=== PATIENT | female | born 1960 | race Caucasian/White ===

== ENCOUNTER 2020-04-26 08:13 | Outpatient (REF) | payer OTHER, SELFPAY | END 2020-04-26 08:14 | disposition home or self-care (01) | LOC: HO.HAP 08:13 | PROVIDERS: Visit Provider Internal Medicine | DX: Z46.1 Encounter for fitting and adjustment of hearing aid (principal) | CPT/HCPCS: 92700 ==

== ENCOUNTER 2020-05-08 16:06 | Outpatient (REF) | payer SELFPAY | END 2020-05-08 16:07 | disposition home or self-care (01) | LOC: HO.HAP 16:06 | PROVIDERS: Visit Provider Internal Medicine | DX: Z46.1 Encounter for fitting and adjustment of hearing aid (principal) | CPT/HCPCS: 92700 ==

== ENCOUNTER 2020-06-10 07:47 | Outpatient (REF) | payer OTHER, SELFPAY ==
[2020-06-10 09:37] LABS: COVID-19 Test Negative (Negative)
[2020-06-19 08:20] LABS: COVID-19 Test Negative (Negative); IDNOW Serial# 55D5AD1C
[2020-06-26 08:15] LABS: COVID-19 Test Negative (Negative)
== END 2020-06-10 07:48 | disposition home or self-care (01) ==
LOC: HO.EMPCOV 07:47
PROVIDERS: Visit Provider Internal Medicine
DX: Z20.828 Contact with and (suspected) exposure to other viral communicable diseases (principal)
CPT/HCPCS: 87635; C9803

== ENCOUNTER 2020-06-29 07:46 | Outpatient (REF) | payer OTHER, SELFPAY ==
--- NOTE | 2020-06-29 07:50 | MM_ITS ---
EXAMINATION: MM SCREENING DIGITAL BREAST TOMOSYNTHESIS, BILATERAL CLINICAL INFORMATION: Screening. Asymptomatic. The lifetime risk of breast cancer based on the Tyrer-Cuzick Model is 11.6%. COMPARISON: Mammography: March 06, 2019 and studies dating back to July 01, 2010 TECHNIQUE: Digital breast tomosynthesis is performed in both the craniocaudal and mediolateral oblique views along with computer-aided detection (CAD). Synthesized 2D images are generated from the tomosynthesis. FINDINGS: The breasts are heterogeneously dense, which may obscure small masses (ACR BI-RADS breast composition Category c). There are no significant masses, abnormal calcifications, or other abnormalities. Stable oval density seen about the deep inferior medial aspect of the left breast. MM/MM tomosynthesis screening BI IMPRESSION: There are no significant changes from prior study. ASSESSMENT: BI-RADS 1: Negative RECOMMENDATION: Routine annual mammography screening. This patient's information was entered into a reminder system with a target due date for their next mammogram.
== END 2020-06-29 07:47 | disposition home or self-care (01) ==
LOC: HO.MAMMO 07:46
PROVIDERS: PCP Internal Medicine; Visit Provider Internal Medicine
DX: Z12.31 Encounter for screening mammogram for malignant neoplasm of breast (principal)
CPT/HCPCS: 77063; 77067

== ENCOUNTER 2020-08-23 16:09 | Outpatient (REF) | payer OTHER, SELFPAY ==
[2020-08-23 17:01] LABS: MANUAL DIFF FLAG NO
[2020-08-23 17:12] LABS: Basophils Absolute Auto 0.1 X10*3/uL (0.0-0.2); Basophils Percent Auto 0.8 % (0-2); Eosinophils Absolute Auto 0.3 X10*3/uL (0.0-0.4); Eosinophils Percent Auto 3.8 % (0-4); Hematocrit 40.8 % (37-47); Hemoglobin 13.4 g/dl (12.0-16.0); Imm Gran Abs Auto 0.02 X10*3/uL (0.00-0.03); Imm Gran Pct Auto 0.3 % (0.0-0.4); Lymphocytes Absolute Auto 2.2 X10*3/uL (1.2-4.9); Lymphocytes Percent Auto 29.3 % (20-40); Mean Corpuscular HGB Conc 32.8 g/dl (31.0-35.0); Mean Corpuscular Hemoglobin 27.9 pg (27.0-33.0); Mean Platelet Volume 10.9 fL (9.4-12.3); Monocytes Absolute Auto 0.7 X10*3/uL (0.1-1.2); Monocytes Percent Auto 9.4 % (2-11); Neutrophils Absolute Auto 4.1 X10*3/uL (2.0-8.3); Neutrophils Percent Auto 56.4 % (45-73); Platelet Count 258 X10*3/uL (160-400); Red Cell Distribution Width 12.3 % (11.0-16.0); White Blood Count 7.3 X10*3/uL (4.8-10.8)
[2020-08-23 17:35] LABS: Alanine Aminotransferase 19 U/L (0-31); Albumin Level 4.3 g/dL (3.5-5.0); Alkaline Phosphatase 70 U/L (39-117); Anion Gap 11 (12-20); Aspartate Amino Transferase 18 U/L (5-31); Bilirubin Total 0.8 mg/dL (0.0-1.0); Blood Urea Nitrogen 15 mg/dL (9-16); C Reactive Protein 0.93 mg/dL (< or = 0.50); Calcium 9.3 mg/dL (8.4-10.2); Carbon Dioxide 28 mmol/L (22-29); Chloride 107 mmol/L (96-108); Estimated Glomerular Filt Rate > 60; Glucose Random 90 mg/dL (60-115); Lactate Dehydrogenase 186 U/L (122-220); Sodium 142 mmol/L (135-145); Total Protein 7.5 g/dL (6.5-8.0)
== END 2020-08-23 16:10 | disposition home or self-care (01) ==
LOC: HO.LAB 16:09
PROVIDERS: Visit Provider Internal Medicine
DX: M54.2 Cervicalgia (principal)
CPT/HCPCS: 36415; 80053; 83615; 85025; 86140

== ENCOUNTER 2021-01-23 07:56 | Outpatient (REF) | payer OTHER, SELFPAY ==
--- NOTE | 2021-01-23 08:02 | EMG_ITS ---
Right median and ulnar motor and sensory studies were performed. Right radial sensory study was performed and paraspinal muscles were tested with a needle. IMPRESSION: Moderately severe right median neuropathy across carpal tunnel. MD MIKAL Granger/DARIN / [id number]
== END 2021-01-23 07:57 | disposition home or self-care (01) ==
LOC: HO.NEURO 07:56
PROVIDERS: PCP Internal Medicine; Visit Provider Physician Assistant
DX: R20.0 Anesthesia of skin (principal); R20.2 Paresthesia of skin; G56.01 Carpal tunnel syndrome, right upper limb
CPT/HCPCS: 95886; 95909

== ENCOUNTER → 2021-02-18 13:54 | Outpatient (BNVA) | payer OTHER, SELFPAY | PROVIDERS: Visit Provider Orthopaedic Surgery ==

== ENCOUNTER 2021-02-20 13:26 | Outpatient (REF) | payer OTHER, SELFPAY ==
--- NOTE | 2021-02-24 12:05 | MHC.AU.AHA ---
Adult Audiological Evaluation Date of Visit: 02/20/21 Weapons Electrical Engineering Officer Used: Not Applicable Reason for Appointment: Audiologic re-evaluation due to question of change in hearing ability. Shantell's hearing aids are almost 12 years old and she reports the batteries do not last as long as they used to. Previous Hearing Test Results: 05/25/2018 [facility] Borderline normal to mild loss at 250 Hz, dropping to a moderately-severe high frequency sensorineural hearing loss with the left ear poorer than the right. 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: [employer] Model: S Series 9 [facility] Serial Number: [id number] Battery Size: 10 Repair Warranty: 06/02/21 Dispensed By: [facility] Date of Fittin05/15/2009 Hearing Instrument History- Left Ear: Chief Payroll Clerk: Micki Model: S Series 9 [facility] Serial Number: [id number] Battery Size: 10 Warranty: 06/02/21 Dispensed By: [facility] Date of Fittin05/15/2009 Otoscopy: Right Ear: Unremarkable Left Ear: Unremarkable Tympanometry: Tympanometry not performed today as all previous testing has indicated normal middle ear function bilaterally Hearing Evaluation: Transducer(s) Used: Insert Earphones Bone Conduction Method: Conventional Audiometry Stimuli Used: Pure Tones Right Ear: Description of Hearing: Borderline normal threshold at 250 Hz, sloping to a moderately-severe sensorineural hearing loss at 9509-7505 Hz, rising to moderate loss at 8000 Hz Left Ear: Description of Hearing: Mild sloping to severe sensorineural hearing loss Speech Recognition Threshold (SRT): Method Used: Monitored Live Voice Stimuli Used: Spondee Words Right Ear: 50 dB HL Left Ear: 55 dB HL Word Discrimination: Method: Recorded Lists Word Lists Used: NU-6 Right Ear: 76% at 85 dB HL 84% at 80 dB HL Left Ear: 44% at 85 dB HL 52% at 80 dB HL Most Comfortable Level (MCL): Right Ear: 85 dB HL Left Ear: 85 dB HL Compared to the most recent evaluation: Hearing is stable. Recommendations: Trial with new amplification is recommended. Medical clearance from a physician is required before fitting. Hearing aid maintenance performed today. Shantell is advised to schedule a Hearing Aid Evaluation appointment within the next 6 months when ready to order new hearing aids. Audiological re-evaluation in one year. Will send a reminder card. Diagnosis: Primary Diagnosis: H90.3 Bilateral Sensorineural Hearing Loss Services Performed: Comprehensive Audiological Evaluation (CPT 14911) Signature: Provider: Michael Wong, VANESSA-A
--- NOTE | 2021-02-24 12:11 | MHC.AU.MED ---
Medical Clearance for Hearing Instrumentation Date: 02/20/21 Patient Name: Shantell Jamison Date of : 1960 Primary Care Provider: Referring Provider: Travis Ramirez MD We have seen your patient on 02/20/21 and have determined that they are a candidate for amplification (See accompanying report). Specifically, they would benefit from: Hearing aid use in both ears There is a statute that addresses Medical Evaluation Requirements prior to fitting a patient with a hearing aid. According to [place] statute 265 CMR:6.03(1), (a) General. Except as provided in 265 CMR 6.03(1)(b), a teacher of the deaf/hard of hearing shall not sell a hearing aid unless the prospective user has presented to the teacher of the deaf/hard of hearing a written statement signed by a licensed physician that states that the patient's hearing loss has been medically evaluated and the patient may be considered a candidate for a hearing aid. The medical evaluation must have taken place within the preceding six months. Please note: Due to the [place] Statute referenced above, we cannot accept a signature other than that of a licensed physician. TERADATA SOLUTION ARCHITECT and PA signatures cannot be accepted. I am in agreement with the above recommendation. There is no medical contraindication for hearing instrumentation. Physician Signature Date Physician Name (Printed)
== END 2021-02-20 13:27 | disposition home or self-care (01) ==
LOC: HO.SH 13:26
PROVIDERS: Visit Provider Internal Medicine
DX: H90.3 Sensorineural hearing loss, bilateral (principal)
CPT/HCPCS: 92557

== ENCOUNTER 2021-03-20 11:16 | Day surgery (SDC) | payer OTHER, SELFPAY ==
[2021-03-20 11:36] VITALS: BMI 30.4
[2021-03-20 11:48] VITALS: BP 161/94; PULSE 89; RESP 15; TEMP 36.9; O2SAT 96
--- NOTE | 2021-03-20 12:38 | MHC.SHP ---
Pre-Procedural Eval Section A Date of Service: 03/20/21 The patient is an INPATIENT: No Changes since office visit: No Cold of Flu in the past 2 weeks, No New Medical Problems, No Changes in Medication and No Patient answered all questions The History & Physical has been completed within 30 days and I have reviewed it.: Yes Section B Chief Complaint: carpal tunnel Allergies: Allergies Allergy/AdvReac Type Severity Reaction Status Date / Time No Known Allergies Allergy Verified 03/20/21 11:36 [No Known Allergies*] Plan I have reviewed the history and physical and performed a pertinent physical examination on my patient. No changes have occurred unless specified.
--- NOTE | 2021-03-20 12:41 | W.PM.OPN ---
Operative Note Operative Note Date of Service: 03/20/21 Narrative: Preop diagnosis: 1. Right Carpal tunnel syndrome Postop diagnosis: same Procedure: 1. Right Carpal tunnel release Surgeon: Jaz Gresham MD Anesthesia: local block using 1% lidocaine with epinephrine Findings: Thickened transverse carpal ligament. EBL: Less than 5 mL Specimens: None Complications: None Disposition: Brought to recovery room in stable condition Plan: Follow-up for 7-10 days for wound check and suture removal Indications: The patient is a 60 years old, with right carpal tunnel syndrome that has been unresponsive to nonoperative management. The risks and benefits of operative treatment including but not limited to risk of damage to blood vessels, nerves, tendons, infection, persistent pain, persistent symptoms, or possible need for additional surgery were discussed with the patient and the patient wishes to proceed with surgery. Procedure: Once consent was obtained a local block was performed using a combination of 1% lidocaine with epinephrine. The patient was then brought back to the operating suite and placed on the operative table in supine position. A tourniquet was applied to the proximal aspect of the right upper extremity and the limb was prepped and draped in a standard surgical fashion. Once assured that we had a good block, a 1.5 cm longitudinal incision was made centered over the carpal tunnel. The incision was made through the skin to the subcutaneous tissues using a #15 blade. Dissection was made down to the level of the transverse carpal ligament with care being taken to protect the palmar cutaneous nerve. Once the transverse carpal ligament was clearly visualized, a longitudinal incision was made in the transverse carpal ligament 1st using a #15 blade, then using tenotomy scissors under direct visualization. Care was taken to look for and protect the motor branch of the median nerve when seen in this area. Once satisfied with our carpal tunnel release the wound was copiously irrigated with normal saline and hemostasis was obtained with a brief period of local pressure. The skin edges were reapproximated with some 5.0 nylon suture material and a sterile dressing was applied. The patient appears to have tolerated the procedure well and with no complications. All digits were well vascularized at the conclusion of the case.
[2021-03-20 13:04] VITALS: BP 149/80; PULSE 71; RESP 16; TEMP 36.3; O2SAT 97
== END 2021-03-20 13:10 | disposition home or self-care (01) ==
PROVIDERS: PCP Internal Medicine; Visit Provider Orthopaedic Surgery
PROC: (CPT 64721; principal; 2021-03-20 12:50)
DX: G56.01 Carpal tunnel syndrome, right upper limb (principal); I10 Essential (primary) hypertension; Z79.899 Other long term (current) drug therapy
CPT/HCPCS: 64721

== ENCOUNTER → 2021-04-02 14:59 | Outpatient (BNVA) | payer OTHER, SELFPAY | PROVIDERS: PCP Internal Medicine; Visit Provider Orthopaedic Surgery ==

== ENCOUNTER 2021-04-28 08:43 | Outpatient (REF) | payer SELFPAY ==
--- NOTE | 2021-04-29 07:47 | MHC.AU.HFU ---
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: [employer] Model: S Series 9 [facility] Serial Number: [id number] Repair Warranty: 06/02/22 Loss and Damage Warranty: 06/02/22 Battery Size: 10 Type of Wax Guard: HearClear Dispensed By: [facility] Date of Fittin05/15/2009 Left Ear: Laundry Supervisor: Micki Model: S Series 9 [facility] Serial Number: [id number] Repair Warranty: 06/02/22 Loss and Damage Warranty: 06/02/22 Battery Size: 10 Type of Wax Guard: HearClear Dispensed By: [facility] Date of Fittin05/15/2009 Follow-Up Summary: Patient left message saying she wants hearing aid service and L&D warranty extended. Called [employer] and spoke with Judy who extended warranties to 05/27/2022. Will bill patient $350.00 Recommendations:Hearing instrument follow-up or maintenance as needed. Please contact our clinic with any questions or concerns. Diagnosis Code(s): Primary Diagnosis: H90.3 Bilateral Sensorineural Hearing Loss Services Performed: Extended Warranty (1 or 2 Instruments): 2 Signature: Provider: Michael Wong, [facility]
== END 2021-04-28 08:44 | disposition home or self-care (01) ==
LOC: HO.HAP 08:43
PROVIDERS: Visit Provider Internal Medicine
DX: H90.3 Sensorineural hearing loss, bilateral (principal)
CPT/HCPCS: V5299

== ENCOUNTER 2021-06-07 15:50 | Emergency (ER) | payer OTHER, SELFPAY ==
[2021-06-07 16:04] VITALS: BP 154/92; PULSE 97; RESP 18; TEMP 36.3; O2SAT 97; BMI 30.7
[2021-06-07] MEDS: Lidocaine HCl 1 % 20 ML VIAL INFILTRATI (16:27)
--- NOTE | 2021-06-07 17:16 | ED.WOUNDLAC ---
HPI - Wound/Laceration General Chief Complaint: Wound/Laceration <PRADEEP Birmingham - Last Filed: 06/07/21 17:37> Stated Complaint: left finger laceration <PRADEEP Birmingham - Last Filed: 06/07/21 17:37> Time Seen by Provider: 06/07/21 16:20 <PRADEEP Birmingham - Last Filed: 06/07/21 17:37> Source: patient <PRADEEP Birmingham - Last Filed: 06/07/21 17:37> Mode of arrival: ambulatory <PRADEEP Birmingham - Last Filed: 06/07/21 17:37> Limitations: no limitations <PRADEEP Birmingham - Last Filed: 06/07/21 17:37> History of Present Illness HPI narrative: 61 year old female past medical history significant for carpal tunnel syndrome on right hand, hypertension, presents to the ED with a laceration on the distal aspect of the 4th digit s/p cutting herself with a glass picture frame while cleaning just prior to her arrival. She states the glass was not cracked and it was intact. No concern for a foreign body, and she states she irrigated the area well. She reports pain at the site. Patient is not up to date on a tetanus shot. She is not on blood thinners. Denies fevers, chills, paresthesias, numbness, tingling, uncontrolled bleeding, chest pain, shortness of breath. <PRADEEP Birmingham - Last Filed: 06/07/21 17:37> Onset (ago): hour(s) (1) <PRADEEP Birmingham - Last Filed: 06/07/21 17:37> Location: other (left fourth digit ) <PRADEEP Birmingham - Last Filed: 06/07/21 17:37> Place: home <PRADEEP Birmingham - Last Filed: 06/07/21 17:37> Patient tetanus UTD: No <PRADEEP Birmingham - Last Filed: 06/07/21 17:37> Context: accidental <PRADEEP Birmingham - Last Filed: 06/07/21 17:37> Associated symptoms: none <PRADEEP Birmingham - Last Filed: 06/07/21 17:37> Treatments prior to arrival: bandage and other (cleaned area with water. ) <PRADEEP Birmingham - Last Filed: 06/07/21 17:37> Related Data Home Medications: Home Medications Medication Instructions Recorded Confirmed atenolol 25 mg tablet 25 mg PO DAILY 02/18/21 lisinopril 5 mg tablet 5 mg PO DAILY 02/18/21 estradiol 10 mcg vaginal tablet 1 tab VAGINAL 2XW 03/20/21 03/20/21 (Yuvafem) Previous Rx's Medication Instructions Recorded hydrocodone 5 mg-acetaminophen 325 1 tab PO Q4-6H PRN #5 tab 03/20/21 mg tablet <PRADEEP Birmingham - Last Filed: 06/07/21 17:37> Allergies/Adverse Reactions: Allergies Allergy/AdvReac Type Severity Reaction Status Date / Time No Known Allergies Allergy Verified 06/07/21 16:03 [No Known Allergies*] <PRADEEP Birmingham - Last Filed: 06/07/21 17:37> Review of Systems Review of Systems: Constitutional : No Fever, No Chills, Cardiovascular : No Chest Pain, No SOB Respiratory : No Dyspnea Gastrointestinal : No abdominal pain Musculoskeletal : No Joint Swelling Skin : No rash, positive skin laceration Neuro : No Weakness, No Numbness Psych : No SI/HI <PRADEEP Birmingham - Last Filed: 06/07/21 17:37> [facility] Past Medical History Attestation statement: The following information was validated with the patient. <PRADEEP Birmingham - Last Filed: 06/07/21 17:37> Source: old records reviewed and nursing notes reviewed <PRADEEP Birmingham - Last Filed: 06/07/21 17:37> Medical History: Medical History (Updated 06/07/21 @ 17:28 by PRADEEP Birmingham) High blood pressure <PRADEEP Birmingham - Last Filed: 06/07/21 17:37> Surgical History: Surgical History History of History of stapedectomy Hx of eye surgery <PRADEEP Birmingham - Last Filed: 06/07/21 17:37> Social History Social History: Social History (Updated 02/18/21 @ 14:21 by Orin Chavez) Patient Tobacco Use Status: Never used Tobacco Advance Directives: No Advance Directives Information Provided: No Patient : No Current occupational status: employed 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 Oriented X3.? No acute distress.? Eyes: Pupils equal, round and reactive to light.? CVS: Normal heart rate and rhythm.? Pulses normal.? Respiratory: No respiratory distress.? Breath sounds normal.? Skin: Skin warm and dry.? Normal skin color.? Normal skin turgor.? Extremities: No lower extremity edema.?+ linear laceration to the distal ventral fourth digit around 4 cm in length. Full range of motion to all fingers on left and right hand. Bilateral upper extremity pulses 2+ equal and bilateral. Neuro: Oriented X 3.? No motor deficit.? No sensory deficit. <PRADEEP Birmingham - Last Filed: 06/07/21 17:37> Course Course Course Narrative: Patient seen and examined agree with assessment and plan. <PRADEEP Ray Last Filed: 06/07/21 18:42> Reevaluation(s) Reevaluation #1: Laceration was closed using three 4-0 nylon sutures. non disolvable. No complications. Patient was given her boostrix shot. She is safe for DC home has been told to return if fevers, chills, cp, sob, nausea, vomiting or any signs of infection. She was also told to return in 7-10 days for suture removal. Patient is not diabetic, this was not a complicated repair, and there is no need for antibiotics. <PRADEEP Birmingham Last Filed: 06/07/21 17:37> Time: 17:26 <PRADEEP Birmingham Last Filed: 06/07/21 17:37> MDM - Wound/Laceration MDM Narrative Medical decision making narrative: 1620 61 yo female pmhx HTN, carpel tunnel presents to the ED with a 4 cm linear lac to the ventral aspect of the fourth left digit. Patient cut herself on glass. Bleeding well controlled. Not on thinners. Reports pain at site. Denies issues with sensory and motor. No fevers, chills, CP, SOB Upon physical examinaiton patient apepars comfortable. Lungs clear. RRR. A linear laceration to the distal ventral fourth digit around 4 cm in length. Full range of motion to all fingers on left and right hand. Bilateral upper extremity pulses 2+ equal and bilateral. Sensory and motor intact. Plan: irrigate area with saline, clean with iodine, use lidocaine for anesthesia and suture using 4-0 sutures. <PRADEEP Birmingham Last Filed: 06/07/21 17:37> Procedures Laceration Laceration 1: Site: other (left fourth digit, venrtal distal aspect) <PRADEEP Birmingham Last Filed: 06/07/21 17:37> Side (If applicable): left <PRADEEP Birmingham Last Filed: 06/07/21 17:37> Size (cm): 4 <PRADEEP Birmingham Last Filed: 06/07/21 17:37> Description: linear <PRADEEP Birmingham Last Filed: 06/07/21 17:37> Depth: simple, single layer <PRADEEP Birmingham - Last Filed: 06/07/21 17:37> Local Anesthetic: lidocaine 1% <PRADEEP Birmingham - Last Filed: 06/07/21 17:37> Amount of anesthesia used (mL): 5 <PRADEEP Birmingham - Last Filed: 06/07/21 17:37> Pre-repair: wound explored, irrigated extensively and deep structures intact <PRADEEP Birmingham - Last Filed: 06/07/21 17:37> Skin layer closed with: nylon <PRADEEP Birmingham - Last Filed: 06/07/21 17:37> Size (cm): 4-0 <PRADEEP Birmingham - Last Filed: 06/07/21 17:37> Number of sutures: 3 <PRADEEP Birmingham - Last Filed: 06/07/21 17:37> Technique: simple, interrupted <PRADEEP Birmingham - Last Filed: 06/07/21 17:37> Critical Care Time Critical Care Time Critical Care Time: No <PRADEEP Birmingham - Last Filed: 06/07/21 17:37> Discharge Plan Discharge Clinical Impression: Laceration <PRADEEP Birmingham - Last Filed: 06/07/21 17:37> Patient Disposition: Home, Self-Care <PRADEEP Birmingham - Last Filed: 06/07/21 17:37> Instructions: Care For Your Stitches (ED), Stitches Removal (ED) <PRADEEP Birmingham - Last Filed: 06/07/21 17:37> Additional Instructions: Follow-up with your primary care provider this week as needed Return for suture removal in 7-10 days Return to the emergency department with new or worsening symptoms. Or if you experience fevers, chills, shortness of breaht, worsening pain or any signs of infeciton. In case of emergency call 911 <PRADEEP Birmingham - Last Filed: 06/07/21 17:37> Prescriptions: No Action estradiol [Yuvafem] 10 mcg tablet 1 tab vaginal 2XW RF: 0 hydrocodone-acetaminophen 5-325 mg tablet 1 tab PO Q4-6H PRN (Reason: pain) Qty: 5 RF: 0 <PRADEEP Birmingham - Last Filed: 06/07/21 17:37> Referrals: Travis Ramirez MD [Primary Care Provider] - 1 week <PRADEEP Birmingham - Last Filed: 06/07/21 17:37> Stand Alone Forms: Work/School Release <PRADEEP Birmingham - Last Filed: 06/07/21 17:37> Interventions: ED Discharge Assessment Last Done: 06/07/21 17:50 <PRADEEP Birmingham - Last Filed: 06/07/21 17:37> Discharge Date/Time: 06/07/21 17:51 <PRADEEP Birmingham - Last Filed: 06/07/21 17:37>
[2021-06-07] MEDS: Diphth,Pertus(ACell),Tet Adult 0.5 ML SYRINGE IM (17:22)
== END 2021-06-07 17:51 | disposition home or self-care (01) ==
PROVIDERS: Emergency Provider Internal Medicine; PCP Internal Medicine
DX: S61.211A Laceration without foreign body of left index finger without damage to nail, initial encounter (principal); S60.512A Abrasion of left hand, initial encounter; M79.642 Pain in left hand; W25.XXXA Contact with sharp glass, initial encounter; Y93.9 Activity, unspecified; Y92.009 Unspecified place in unspecified non-institutional (private) residence as the place of occurrence of the external cause; Y99.9 Unspecified external cause status; Z79.899 Other long term (current) drug therapy
CPT/HCPCS: 12002; 90471; 90715; 99283; 99284

== ENCOUNTER 2021-07-02 07:20 | Outpatient (REF) | payer OTHER, SELFPAY ==
--- NOTE | ~2021-07-02 | MM_ITS ---
EXAMINATION: MM SCREENING DIGITAL BREAST TOMOSYNTHESIS, BILATERAL CLINICAL INFORMATION: Screening. Asymptomatic. The lifetime risk of breast cancer based on the Tyrer-Cuzick Model is 9.2%. COMPARISON: Mammography: June 29, 2020 and studies dating back to October 02, 2013 TECHNIQUE: Digital breast tomosynthesis is performed in both the craniocaudal and mediolateral oblique views along with computer-aided detection (CAD). Synthesized 2D images are generated from the tomosynthesis. FINDINGS: The breasts are heterogeneously dense, which may obscure small masses (ACR BI-RADS breast composition Category c). There are no significant masses, abnormal calcifications, or other abnormalities. Stable regions of architectural distortion present bilaterally. MM/MM tomosynthesis screening BI IMPRESSION: There are no significant changes from prior study. ASSESSMENT: BI-RADS 1: Negative RECOMMENDATION: Routine annual mammography screening. This patient's information was entered into a reminder system with a target due date for their next mammogram.
== END 2021-07-02 07:21 | disposition home or self-care (01) ==
LOC: HO.MAMMO 07:20
PROVIDERS: Visit Provider Internal Medicine
DX: Z12.31 Encounter for screening mammogram for malignant neoplasm of breast (principal)
CPT/HCPCS: 77063; 77067

== ENCOUNTER → 2021-08-15 07:50 | Outpatient (BNVA) | payer OTHER, SELFPAY | PROVIDERS: PCP Internal Medicine | DX: Z13.89 Encounter for screening for other disorder (principal) | CPT/HCPCS: 36415; 84450; 84460; 85025; 86706; 86803; 87389; 99202 ==

== ENCOUNTER → 2021-08-19 07:43 | Outpatient (BNVA) | payer OTHER, SELFPAY | PROVIDERS: PCP Internal Medicine; Visit Provider Internal Medicine | DX: Z13.89 Encounter for screening for other disorder (principal) | CPT/HCPCS: 99213 ==

== ENCOUNTER → 2021-08-29 07:50 | Outpatient (BNVA) | payer OTHER, SELFPAY | PROVIDERS: PCP Internal Medicine; Visit Provider Internal Medicine | DX: Z13.89 Encounter for screening for other disorder (principal) | CPT/HCPCS: 36415; 82150; 82565; 84450; 84460; 85025; 99213 ==

== ENCOUNTER → 2021-09-12 07:42 | Outpatient (BNVA) | payer OTHER, SELFPAY | PROVIDERS: PCP Internal Medicine; Visit Provider Internal Medicine | DX: Z13.89 Encounter for screening for other disorder (principal) | CPT/HCPCS: 36415; 82150; 82565; 84450; 84460; 85025; 99213 ==

== ENCOUNTER → 2021-09-25 08:39 | Outpatient (BNVA) | payer OTHER, SELFPAY | PROVIDERS: PCP Internal Medicine | DX: Z13.89 Encounter for screening for other disorder (principal) | CPT/HCPCS: 36415; 84450; 84460; 87389; 99211 ==

== ENCOUNTER → 2021-11-20 07:26 | Outpatient (BNVA) | payer OTHER, SELFPAY | PROVIDERS: PCP Internal Medicine | DX: Z13.89 Encounter for screening for other disorder (principal) | CPT/HCPCS: 36415; 84450; 84460; 86803; 87389; 99211 ==

== ENCOUNTER → 2022-02-11 14:29 | Outpatient (BNVA) | payer OTHER, SELFPAY | PROVIDERS: PCP Internal Medicine; Visit Provider Orthopaedic Surgery | DX: G56.02 Carpal tunnel syndrome, left upper limb (principal) | CPT/HCPCS: 99212 ==

== ENCOUNTER → 2022-02-26 07:45 | Outpatient (BNVA) | payer OTHER, SELFPAY | PROVIDERS: PCP Internal Medicine | DX: Z13.89 Encounter for screening for other disorder (principal) | CPT/HCPCS: 36415; 84450; 84460; 86803; 87389; 99211 ==

== ENCOUNTER 2022-04-16 10:33 | Day surgery (SDC) | payer OTHER, SELFPAY ==
[2022-04-09 13:25] VITALS: BMI 30.7
--- NOTE | 2022-04-16 09:46 | MHC.SHP ---
Pre-Procedural Eval Section A Date of Service: 04/16/22 Section B Chief Complaint: Carpal tunnel syndrome, left upper limb Allergies: Allergies Allergy/AdvReac Type Severity Reaction Status Date / Time No Known Allergies Allergy Verified 02/11/22 14:46 [No Known Allergies*] Plan I have reviewed the history and physical and performed a pertinent physical examination on my patient. No changes have occurred unless specified.
--- NOTE | 2022-04-16 09:48 | W.PM.OPN ---
Operative Note Operative Note Date of Service: 04/16/22 Narrative: Preop diagnosis: 1. Left Carpal tunnel syndrome Postop diagnosis: same Procedure: 1. left Carpal tunnel release Surgeon: Jaz Gresham MD Anesthesia: local block using 1% lidocaine with epinephrine Findings: Thickened transverse carpal ligament. EBL: Less than 5 mL Specimens: None Complications: None Disposition: Brought to recovery room in stable condition Plan: Follow-up for 10-14 days for wound check and suture removal Indications: The patient is 62 years old, with left carpal tunnel syndrome that has been unresponsive to nonoperative management. The risks and benefits of operative treatment including but not limited to risk of damage to blood vessels, nerves, tendons, infection, persistent pain, persistent symptoms, or possible need for additional surgery were discussed with the patient and the patient wishes to proceed with surgery. Procedure: Once consent was obtained a local block was performed using a combination of 1% lidocaine with epinephrine. The patient was then brought back to the operating suite and placed on the operative table in supine position. A tourniquet was applied to the proximal aspect of the left upper extremity and the limb was prepped and draped in a standard surgical fashion. Once assured that we had a good block, a 2.0 cm longitudinal incision was made centered over the carpal tunnel. The incision was made through the skin to the subcutaneous tissues using a #15 blade. Dissection was made down to the level of the transverse carpal ligament with care being taken to protect the palmar cutaneous nerve. Once the transverse carpal ligament was clearly visualized, a longitudinal incision was made in the transverse carpal ligament 1st using a #15 blade, then using tenotomy scissors under direct visualization. Care was taken to look for and protect the motor branch of the median nerve when seen in this area. Once satisfied with our carpal tunnel release the wound was copiously irrigated with normal saline and hemostasis was obtained with a brief period of local pressure. The skin edges were reapproximated with some 5.0 nylon suture material and a sterile dressing was applied. The patient appears to have tolerated the procedure well and with no complications. All digits were well vascularized at the conclusion of the case.
[2022-04-16 13:38] VITALS: BP 158/77; PULSE 66; RESP 18; TEMP 36.6
== END 2022-04-16 13:40 | disposition home or self-care (01) ==
LOC: HO.SSS 10:34
PROVIDERS: PCP Internal Medicine; Visit Provider Orthopaedic Surgery
PROC: (CPT 64721; principal; 2022-04-16 11:30)
DX: G56.02 Carpal tunnel syndrome, left upper limb (principal); R20.0 Anesthesia of skin; R20.2 Paresthesia of skin; I10 Essential (primary) hypertension; Z79.899 Other long term (current) drug therapy; Z98.890 Other specified postprocedural states
CPT/HCPCS: 64721; J0171

== ENCOUNTER 2022-05-21 08:31 | Outpatient (REF) | payer SELFPAY | END 2022-05-21 08:32 | disposition home or self-care (01) | LOC: HO.HAP 08:31 | PROVIDERS: Visit Provider Internal Medicine | DX: Z46.1 Encounter for fitting and adjustment of hearing aid (principal); H90.3 Sensorineural hearing loss, bilateral | CPT/HCPCS: 92700; V5299 ==

== ENCOUNTER 2022-06-05 14:57 | Outpatient (REF) | payer SELFPAY | END 2022-06-05 14:58 | disposition home or self-care (01) | LOC: HO.HAP 14:57 | PROVIDERS: Visit Provider Internal Medicine | DX: Z13.89 Encounter for screening for other disorder (principal) ==

== ENCOUNTER 2022-07-06 07:25 | Outpatient (REF) | payer OTHER, SELFPAY ==
--- NOTE | ~2022-07-06 | MM_ITS ---
EXAMINATION: MM SCREENING DIGITAL BREAST TOMOSYNTHESIS, BILATERAL CLINICAL INFORMATION: Screening. Asymptomatic. The lifetime risk of breast cancer based on the Tyrer-Cuzick Model is 8%. COMPARISON: Mammography: 07/02/2021, 06/29/2020, 03/06/2019, 02/10/2018 TECHNIQUE: Digital breast tomosynthesis is performed in both the craniocaudal and mediolateral oblique views along with computer-aided detection (CAD). Synthesized 2D images are generated from the tomosynthesis. FINDINGS: There are scattered areas of fibroglandular density (ACR BI-RADS breast composition Category b). Parenchymal pattern is similar to prior exams and there is no developing density or interval architectural abnormality or abnormal calcifications. Breast tissue composition borders on heterogeneously dense. Biopsy clip marker again seen on right central mid breast. The axilla and skin contours are unremarkable. There are no significant changes. MM/MM tomosynthesis screening BI IMPRESSION: No mammographic evidence of malignancy. ASSESSMENT: BI-RADS 1: Negative RECOMMENDATION: Routine annual mammography screening. This patient's information was entered into a reminder system with a target due date for their next mammogram.
== END 2022-07-06 07:26 | disposition home or self-care (01) ==
LOC: HO.MAMMO 07:25
PROVIDERS: PCP Internal Medicine; Visit Provider Internal Medicine
DX: Z12.31 Encounter for screening mammogram for malignant neoplasm of breast (principal)
CPT/HCPCS: 77063; 77067

== ENCOUNTER 2022-07-17 07:53 | Outpatient (REF) | payer OTHER, SELFPAY | END 2022-07-17 07:54 | disposition home or self-care (01) | LOC: HO.SH 07:53 | PROVIDERS: Visit Provider Internal Medicine | DX: Z01.118 Encounter for examination of ears and hearing with other abnormal findings (principal); H90.3 Sensorineural hearing loss, bilateral | CPT/HCPCS: 92557 ==

== ENCOUNTER 2022-11-20 09:45 | Day surgery (SDC) | payer OTHER, SELFPAY ==
--- NOTE | 2022-11-19 09:10 | HO.ANESPROP2 ---
Documented by User: Adamaris Blancas NP 11/19/22 09:10 HPI - Anesthesia Eval Consult details Narrative: 62yo F for Colonoscopy PMFSH Active Problems Active Problems: All Active Problems (Updated 02/11/22 @ 15:32 by Jaz Gresham MD) Carpal tunnel syndrome on right (Acute) Carpal tunnel syndrome of left wrist (Acute) Past Medical History Medical History High blood pressure Surgical History Surgical History (Updated 11/19/22 @ 06:44 by Sharmila Erazo RN) History of breast biopsy History of History of carpal tunnel surgery of left wrist (~04/16/22) History of carpal tunnel surgery of right wrist (~03/20/22) History of stapedectomy Hx of eye surgery Social History Social History Patient Tobacco Use Status: Never used Tobacco Use of substances other than those prescribed or required for medical reasons: No Are you DNR?: No Advance Directives: No Advance Directives Information Provided: Yes Recently lost weight without trying: No Nutrition Risks: No Nutritional Risk Current occupational status: employed 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 Meds Allergies Allergy/AdvReac Type Severity Reaction Status Date / Time No Known Allergies Allergy Verified 04/28/22 09:03 [No Known Allergies*] Home Medications Medication Instructions Recorded Confirmed Last Taken Type atenolol 25 mg tablet 25 mg PO DAILY 02/18/21 11/20/22 Unknown History lisinopril 5 mg tablet 5 mg PO DAILY 02/18/21 11/20/22 Unknown History estradiol 10 mcg vaginal tablet 1 tab vaginal 2XW 03/20/21 11/20/22 Unknown History (Yuvafem) Exam Exam Date and Time: November 19, 2022909 Assessment and Plan Assessment Anesthesia Assessment: Chart Reviewed Documented by User: Rodri Lynch MD 11/20/22 12:02 [facility] Past Medical History Medical History High blood pressure Family History Family history of problems with anesthesia: No Surgical History Surgical History (Updated 11/19/22 @ 06:44 by Sharmila Erazo RN) History of breast biopsy History of History of carpal tunnel surgery of left wrist (~04/16/22) History of carpal tunnel surgery of right wrist (~03/20/22) History of stapedectomy Hx of eye surgery History of Problems with Anesthesia: No Social History Social History Patient Tobacco Use Status: Never used Tobacco Use of substances other than those prescribed or required for medical reasons: No Are you DNR?: No Advance Directives: No Advance Directives Information Provided: Yes Recently lost weight without trying: No Nutrition Risks: No Nutritional Risk Current occupational status: employed 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 Meds Allergies Allergy/AdvReac Type Severity Reaction Status Date / Time No Known Allergies Allergy Verified 04/28/22 09:03 [No Known Allergies*] Home Medications Medication Instructions Recorded Confirmed Last Taken Type atenolol 25 mg tablet 25 mg PO DAILY 02/18/21 11/20/22 Unknown History lisinopril 5 mg tablet 5 mg PO DAILY 02/18/21 11/20/22 Unknown History estradiol 10 mcg vaginal tablet 1 tab vaginal 2XW 03/20/21 11/20/22 Unknown History (Yuvafem) Exam Airway Mallampati Class: I TM Dist: >3cm Neck ROM: Full Heart: ok Lungs: ok Assessment and Plan Assessment Anesthesia Assessment: Anesthesia Plan Discussed Final Anesthetic Review Family History of Problems with Anesthesia: No History of Problems with Anesthesia: No NPO: Yes ASA Class: II Final Preanesthetic Review: No Changes in Pt Med Stat, Meds/Allgs Chart Reviewed, Consent Obtained/Reviewed and Anes Risks/Benef Reviewed Patient Risk: Low Procedure Risk: Low Anesthetic Plan Anesthetic Plan: MAC: and Agree w/ Assess. and Plan Disposition: Standard PACU
[2022-11-20 10:26] VITALS: BMI 31.4
[2022-11-20 10:36] VITALS: BP 152/80; PULSE 81; RESP 16; TEMP 36.9; O2SAT 98
[2022-11-20] MEDS: Lactated Ringers 1,000 ML 100 ML IVCONT (10:52)
--- NOTE | 2022-11-20 11:45 | MHC.SHP ---
Pre-Procedural Eval Section A Date of Service: 11/20/22 Section B Chief Complaint: hx ofcolonic polyps,screening Details of Present Illness: see H&P no changes Relevant Family History (Specify if Yes): No Relevant Social History: None Present Medications: see Short Stay Collaborative assessment Medical History: No relevant PMH History of Previous Operations: No relevant previous surgery Allergies: Allergies Allergy/AdvReac Type Severity Reaction Status Date / Time No Known Allergies Allergy Verified 04/28/22 09:03 [No Known Allergies*] Review of Systems Sugical H&P ROS: Negative: Constitution, Cardiovascular, Respiratory, Neurological, Psychiatric, Hem-Onc, Allergic/Immunologic, Gastrointestinal, Genitourinary, Musculoskeletal, Integumentary, Endocrine and Eyes/Ears/Nose/Throat Exam Surgical H&P Exam: Normal: HEENT, Normal: Heart, Normal: Lungs, Normal: Extremities, Normal: Abdomen, Normal: Skin and Normal: Neurological Plan Diagnosis/Plan: Unchanged I have reviewed the history and physical and performed a pertinent physical examination on my patient. No changes have occurred unless specified. Time Spent With Patient Time: Total time managing care of this patient today ____ minutes.
[2022-11-20 12:33] VITALS: BP 99/54; PULSE 70; RESP 19; TEMP 36.1; O2SAT 97
--- NOTE | 2022-11-20 12:33 | P.BOP_ITS ---
Brief Operative Note Date of Service: 11/20/22 Pre-op diagnosis: screening Post-op diagnosis: same Procedure: colonoscopy Surgeon: Nicola Anderson Anesthesia: MAC Was an Environmental Assistant used for this Procedure?: No Estimated blood loss (mL): 0 Pathology: none sent Condition: stable Disposition: PACU
[2022-11-20 12:49] VITALS: BP 100/59; PULSE 75; RESP 16; TEMP 37.1
--- NOTE | 2022-11-20 13:28 | OP_ITS ---
DATE OF SERVICE: 11/20/2022 SURGEON: Nicola Anderson MD INDICATIONS: Colon cancer screening. PREOPERATIVE DIAGNOSIS: POSTOPERATIVE DIAGNOSIS: PROCEDURE PERFORMED: Colonoscopy to the terminal ileum. ESTIMATED BLOOD LOSS: COMPLICATIONS: ANESTHESIA: Monitored anesthesia care. ASSISTANTS: SPECIMENS: DESCRIPTION OF PROCEDURE: A history and physical performed. The risks and benefits of the procedure were explained to the patient. Informed consent was obtained. The patient was placed in left lateral decubitus position. A digital rectal exam was performed and was found to be normal. The Olympus pediatric video colonoscope was introduced into the rectum and advanced to the cecum without difficulty. The cecum was identified by transillumination, palpation, and identification of ileocecal valve. Examination was performed. The scope was removed. She tolerated the procedure well and was taken to recovery in stable condition. FINDINGS: The terminal ileum was examined and appeared normal. The visualized colonic mucosa was normal. The quality of the prep was good. The sigmoid was quite tortuous, which made the exam challenging, but the scope was eventually able to be passed through the sigmoid without any difficulty. No polyps were identified. The quality of prep was good. There was mild sigmoid diverticulosis. Retroflexed examination showed small internal hemorrhoids. IMPRESSION: Normal colonoscopy. RECOMMENDATION: 1. Follow up as needed. 2. Repeat colonoscopy is recommended in 5 years.. MD NORY Lucero/MODL / [id number] MTDD
== END 2022-11-20 13:30 | disposition home or self-care (01) ==
PROVIDERS: PCP Internal Medicine; Visit Provider Internal Medicine Gastroenterology
PROC: 0DJD8ZZ Inspection of Lower Intestinal Tract, Via Natural or Artificial Opening Endoscopic (ICD-10-PCS; CPT 45378; principal; 2022-11-20 10:50)
DX: Z12.11 Encounter for screening for malignant neoplasm of colon (principal); Z83.71 Family history of colonic polyps; K57.30 Diverticulosis of large intestine without perforation or abscess without bleeding; K64.8 Other hemorrhoids; Z79.899 Other long term (current) drug therapy; I10 Essential (primary) hypertension; Z87.891 Personal history of nicotine dependence; K92.89 Other specified diseases of the digestive system
CPT/HCPCS: 45378

== ENCOUNTER 2023-02-19 11:10 | Outpatient (REF) | payer SELFPAY | END 2023-02-19 11:11 | disposition home or self-care (01) | LOC: HO.HAP 11:10 | PROVIDERS: Visit Provider Internal Medicine | DX: Z46.1 Encounter for fitting and adjustment of hearing aid (principal); H90.3 Sensorineural hearing loss, bilateral | CPT/HCPCS: 92700; V5267 ==

== ENCOUNTER 2023-02-26 15:29 | Outpatient (REF) | payer SELFPAY ==
--- NOTE | 2023-02-26 16:22 | MHC.AU.HA3 ---
Hearing Instrument Follow-Up- Binaural Date of Visit: 02/26/23 Right Ear: Make, Model, Color, Serial Number: Micki Rey Series 9 [facility] SN: [id number] [employer] Warranty: 06/02/2023 [employer] Loss and Damage Warranty: 06/02/2023 Battery Size: 10 Type of Wax Guard: HearClear Dispensed By: [facility] Date of Fittin05/15/2009 Left Ear: Deyvi, Model, Color, Serial Number: Micki Rey Series 9 [facility] SN: [id number] [employer] Warranty: 06/02/2023 [employer] Loss and Damage Warranty: 06/02/2023 Battery Size: 10 Type of Wax Guard: HearClear Dispensed By: [facility] Date of Fittin05/15/2009 Follow-Up Summary: Shantell reported that after her last hearing test, she requested adjustments; however, Sheyla recommended evaluation by electric hoist operator first due to significant change in speech discrimination in her left ear. Shantell reported she saw Dr. Rush who did not recommend any further investigation at this time. Discussed speech discrimination ability and how that affects overall hearing, even with programming adjustments. Increased mid-high frequencies slightly, left more so than right, at Shantell's request. Slight improvement in office. She will trial new settings and call if problems persist. Also briefly discussed new hearing aids. Shantell will request a doctor's order for a new hearing test when she is ready to pursue new hearing aids, as her current test is now greater than 6 months old. 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 Recommendations: Hearing instrument follow-up or maintenance as needed. Please contact our clinic with any questions or concerns. Patient will call if problems persist. Diagnosis Code(s): Primary Diagnosis: H90.3 Bilateral Sensorineural Hearing Loss Signature: Provider: Theodore Isabel, [facility]
== END 2023-02-26 15:30 | disposition home or self-care (01) ==
LOC: HO.HAP 15:29
PROVIDERS: Visit Provider Internal Medicine
DX: Z13.89 Encounter for screening for other disorder (principal)

== ENCOUNTER 2023-05-31 15:42 | Outpatient (REF) | payer OTHER, SELFPAY ==
--- NOTE | ~2023-05-31 | XR_ITS ---
EXAMINATION: XR CHEST CLINICAL INFORMATION: 63-year-old female with cough COMPARISON: 11/16/2017 TECHNIQUE: 2 views of the chest were obtained. FINDINGS: No significant abnormality is noted involving the heart, lungs, mediastinum, bony thorax or soft tissues. XR/XR chest 2V IMPRESSION: Unremarkable examination and no interval change.
== END 2023-05-31 15:43 | disposition home or self-care (01) ==
LOC: HO.XRAY 15:42
PROVIDERS: PCP Internal Medicine; Visit Provider Internal Medicine
DX: R05.9 Cough, unspecified (principal); R06.00 Dyspnea, unspecified
CPT/HCPCS: 71046

== ENCOUNTER 2023-07-21 07:11 | Outpatient (REF) | payer OTHER, SELFPAY ==
--- NOTE | ~2023-07-21 | MM_ITS ---
EXAMINATION: MM SCREENING DIGITAL BREAST TOMOSYNTHESIS, BILATERAL CLINICAL INFORMATION: Screening. Asymptomatic. COMPARISON: Mammography: This study is compared with prior exams dating back to 2017. TECHNIQUE: Digital breast tomosynthesis is performed in both the craniocaudal and mediolateral oblique views along with computer-aided detection (CAD). Synthesized 2D images are generated from the tomosynthesis. FINDINGS: There are scattered areas of fibroglandular density (ACR BI-RADS breast composition Category b). There are no significant masses, abnormal calcifications, or other abnormalities. There is a tissue marker present in the right breast from prior benign percutaneous biopsy. MM/MM tomosynthesis screening BI IMPRESSION: No mammographic evidence of malignancy. ASSESSMENT: BI-RADS BI-RADS 2 - Benign Findings RECOMMENDATION: Routine annual mammography screening. 1 year F/U This examination should not preclude the clinical evaluation of a suspicious palpable abnormality. This patient's information was entered into a reminder system with a target due date for their next mammogram.
--- NOTE | ~2023-07-21 | MM_ITS ---
EXAMINATION: BONE DENSITOMETRY CLINICAL INDICATION: Menopause. COMPARISON: This is the patient's baseline examination. TECHNIQUE: Using a [employer] DXA System (software version: 13.1) manufactured by [employer], dual-energy x-ray absorptiometry was performed of the lumbar spine and left hip. The images are of good technical quality. Summary results are attached. FINDINGS: LEFT FEMUR, NECK: BMD 0.873 g/cm2, Z-score -0.2, T-score -1.2, osteopenia. LEFT FEMUR, TOTAL: BMD 0.850 g/cm2, Z-score -0.6, T-score -1.2, osteopenia. AP SPINE L1-L4: BMD 1.260 g/cm2, Z-score 1.6, T-score 0.7, normal. IDENTIFIED RISK FACTORS: Menopause. HISTORY OF FRACTURE: None listed. MEDICATIONS: None listed. MM/XR DEXA axial skeleton IMPRESSION: 1. DIAGNOSIS: Osteopenia based on the lowest T-score value of -1.2 in the femur neck and total femur applying World Health Organization criteria. 2. 10-YEAR FRACTURE RISK PREDICTION, FRAX: Major osteoporotic fracture (clinical spine, forearm, hip or shoulder) 7.5%. Hip fracture 0.5%. 3. Treatment Recommendations: NOF guidelines recommend consideration for treatment in postmenopausal women and men age 50 and older presenting with the following: -A hip or vertebral (clinical or morphometric) fracture. -T-score less than or equal to -2.5 at the femoral neck or spine after appropriate evaluation to exclude secondary causes. -Low bone mass at the hip or spine and a 10-year fracture probability by FRAX of greater than or equal to 3% for hip fracture or greater than or equal to 20% for major osteoporotic fracture based on the [place] adapted WHO algorithm. 4. Other Recommendations: All treatment decisions require clinical judgment and consideration of individual patient factors, including patient preferences, comorbidities, previous drug use, risk factors not captured in the FRAX model (e.g. frailty, falls, vitamin D deficiency, increased bone turnover, interval significant decline in bone density) and possible under or overestimation of fracture risk by FRAX. Additional medical evaluation for secondary cause of low bone mineral density may be appropriate. FUTURE SCAN RECOMMENDATION: People with diagnosed cases of osteoporosis or at high risk for fracture should have regular bone mineral density tests. For patients eligible for Medicare, routine testing is allowed once every 2 years. The testing frequency can be increased to one year for patients who have rapidly progressing disease, those who are receiving or discontinuing medical therapy to restore bone mass, or have additional risk factors.
[2023-07-21 07:20] LABS: MANUAL DIFF FLAG NO
[2023-07-21 07:28] LABS: Basophils Absolute Auto 0.1 X10*3/uL (0.0-0.2); Eosinophils Absolute Auto 0.3 X10*3/uL (0.0-0.4); Hematocrit 40.4 % (37.0-47.0); Hemoglobin 13.5 g/dl (12.0-16.0); Imm Gran Abs Auto 0.02 X10*3/uL (0.00-0.03); Imm Gran Pct Auto 0.3 % (0.0-0.4); Lymphocytes Absolute Auto 1.9 X10*3/uL (1.2-4.9); Lymphocytes Percent Auto 26.1 % (20-40); Mean Corpuscular HGB Conc 33.4 g/dl (31.0-35.0); Mean Corpuscular Hemoglobin 28.1 pg (27.0-33.0); Mean Corpuscular Volume 84.2 fL (80.0-98.0); Mean Platelet Volume 10.1 fL (9.4-12.3); Monocytes Absolute Auto 0.6 X10*3/uL (0.1-1.2); Monocytes Percent Auto 8.2 % (2-11); Neutrophils Absolute Auto 4.4 x10*3/uL (2.0-8.3); Neutrophils Percent Auto 60.4 % (45-73); Platelet Count 249 X10*3/uL (160-400); Red Cell Distribution Width 12.5 % (11.0-16.0); White Blood Count 7.3 X10*3/uL (4.8-10.8)
[2023-07-21 07:44] LABS: Alanine Aminotransferase 19 U/L (0-31); Albumin Level 4.2 g/dL (3.5-5.0); Alkaline Phosphatase 64 U/L (39-117); Anion Gap 13 (12-20); Aspartate Amino Transferase 19 U/L (5-31); Bilirubin Total 0.6 mg/dL (0.0-1.0); Blood Urea Nitrogen 15 mg/dL (9-16); Calcium 9.5 mg/dL (8.4-10.2); Carbon Dioxide 27 mmol/L (22-29); Chloride 106 mmol/L (96-108); Cholesterol 191 mg/dL (<200); Estimated Glomerular Filt Rate > 60; Glucose Fasting 111 mg/dL (60-99); HDL Cholesterol 58 mg/dL (>40); LDL Cholesterol Calculated 116 mg/dL (<100); Potassium 4.1 mmol/L (3.3-5.1); Sodium 142 mmol/L (135-145); Total Protein 7.9 g/dL (6.5-8.0); Triglycerides 85 mg/dL (<150)
== END 2023-07-21 07:12 | disposition home or self-care (01) ==
LOC: HO.MAMMO 07:11
PROVIDERS: PCP Internal Medicine; Visit Provider Internal Medicine
DX: I10 Essential (primary) hypertension (principal); Z12.31 Encounter for screening mammogram for malignant neoplasm of breast; Z13.820 Encounter for screening for osteoporosis; Z78.0 Asymptomatic menopausal state; Z82.49 Family history of ischemic heart disease and other diseases of the circulatory system
CPT/HCPCS: 36415; 77063; 77067; 77080; 80053; 80061; 85025

== ENCOUNTER → 2023-07-21 08:15 | Outpatient (BNV) | payer OTHER, SELFPAY | PROVIDERS: PCP Internal Medicine; Visit Provider Radiology Diagnostic Radiology | DX: Z12.31 Encounter for screening mammogram for malignant neoplasm of breast (principal) | CPT/HCPCS: 77063; 77067 ==

== ENCOUNTER 2024-03-23 14:21 | Outpatient (REF) | payer SELFPAY | END 2024-03-23 14:22 | disposition home or self-care (01) | LOC: HO.HAP 14:21 | PROVIDERS: Visit Provider Internal Medicine | DX: Z46.1 Encounter for fitting and adjustment of hearing aid (principal); H90.3 Sensorineural hearing loss, bilateral | CPT/HCPCS: V5267 ==

== ENCOUNTER 2024-04-04 15:05 | Outpatient (REF) | payer OTHER, SELFPAY | END 2024-04-04 15:06 | disposition home or self-care (01) | LOC: HO.SH 15:05 | PROVIDERS: Visit Provider Internal Medicine | DX: Z01.118 Encounter for examination of ears and hearing with other abnormal findings (principal); H90.3 Sensorineural hearing loss, bilateral | CPT/HCPCS: 92557; 92567 ==

== ENCOUNTER 2024-07-28 07:23 | Outpatient (REF) | payer OTHER, SELFPAY ==
--- NOTE | ~2024-07-28 | MM_ITS ---
EXAMINATION: MM SCREENING DIGITAL BREAST TOMOSYNTHESIS, BILATERAL CLINICAL INFORMATION: Screening. Asymptomatic. COMPARISON: Mammography: Comparison is made with available priors TECHNIQUE: Digital breast mammography with tomosynthesis is performed in both the craniocaudal and mediolateral oblique views along with computer-aided detection (CAD). FINDINGS: The breasts are heterogeneously dense, which may obscure small masses (ACR BI-RADS breast composition Category c). Right marker clip. There are no significant masses, abnormal calcifications, or other abnormalities. MM/MM tomosynthesis screening BI IMPRESSION: No mammographic evidence of malignancy. ASSESSMENT: BI-RADS BI-RADS 2 - Benign Findings RECOMMENDATION: Routine annual mammography screening. 1 year F/U This examination should not preclude the clinical evaluation of a suspicious palpable abnormality. This patient's information was entered into a reminder system with a target due date for their next mammogram. Electronically signed by: Samantha Moulton DO 08/06/2024 07:29 AM NORA
--- OUTSIDE RECORDS SUMMARY | 2024-07-28 07:29 | XMS_ITS | Data Portability ---
Author Organization [place] - [facility], Allergy Address [address] [address] Care Team Providers Care Electric Screw Driver Operator Name Role Phone SHWETA GRECO Primary Care Provider [phone] Assessment Encounter Date Assessment Date Assessment LastModified by Organization Details LastModified Time 04/27/2024 04/27/2024 Impacted cerumen was debrided from the right ear today. The left ear was free of cerumen. She will follow up as needed. [email or web address] Not available 04/27/2024 14:43:58 Plan of Treatment Reminders Order Date Submit Date Provider Last Modified By Organization Details Last Modified Time Details Appointments None record ed. Lab None record ed. Referral None record ed. Procedures None record ed. Surgeries None record ed. Imaging None record ed. Medication Orders None record ed. Patient TargetsNo targets recorded. Patient InstructionsNo instructions recorded. Reason for Referral None Reported. Problems Name Problem SNOMED Code Status Onset Date Resolution Date Notes Provider Name and Address Organization Details Recorded Time Mixed conductiv e and sensorine ural hearing loss of left ear 96619046065 107 Active 2022 Mixed conductiv e and sensorine ural hearing loss, unilatera l, left ear with restricte d hearing on the contralat eral side; Note: Date Diagnosed : 12/14/2022 3:20 PM (H90.A32) Not Available [facility] 4 02:41:16 Otosclero sis 53111546 Active 2022 Unspecifi ed otosclero sis, left ear; Note: Date Diagnosed : 12/14/2022 3:20 PM (H80.92) Not Available [facility] 4 02:41:07 Sensorine ural hearing loss in right ear 20516657127 100 Active 2022 Sensorine ural hearing loss, unilatera l, right ear, with restricte d hearing on the contralat eral side; Note: Date Diagnosed : 12/14/2022 3:20 PM (H90.A21) Not Available [facility] 4 02:41:15 Impacted cerumen in right ear 01322574008 22946 Active 2023 NOMI LAROSE PA-C [address] [place] [address],[place] [address], [place], [address] , [place] - [facility] 4 14:42:11 Problem Notes None recorded. Medical Equipment None Reported. Medications Name Sig Start Date Stop Date Status Note LastModified by Organization Details LastModified Time azithromycin 250 mg tablet TAKE 2 TABLETS BY MOUTH ON DAY 1, AND THEN TAKE 1 TABLET BY MOUTH ONCE A DAY ON DAY 2 THROUGH DAY 5 active Not Available Not Available No t Available atenolol 25 mg tablet TAKE 1 TABLET BY MOUTH ONCE DAILY active Not Available Not Available No t Available clobetasol 0.05 % topical cream APPLY CREAM TOPICALLY TO AFFECTED AREA TWICE A WEEK active Not Available Not Available No t Available lisinopril 5 mg tablet TAKE 1 TABLET BY MOUTH ONCE DAILY active Not Available Not Available No t Available cefuroxime axetil 500 mg tablet TAKE 1 TABLET BY MOUTH TWICE DAILY active Not Available Not Available No t Available ciprofloxacin 0.3 %-dexamethaso ne 0.1 % ear drops,suspens ion INSTILL 2 DROPS INTO LEFT EAR 3 TIMES PER DAY FOR 7 DAYS active Not Available Not Available No t Available Yuvafem 10 mcg vaginal tablet INSERT 1 TABLET VAGINALLY TWICE WEEKLY active Not Available Not Available No t Available Vitals Date Recorded Body height Body mass index (BMI) Body weight Provider Name and Address Organization Details Last Updated DateTime 04/27/2024 157.48 cm 32 kg/m2 13079.66 g Almas Chiu [place] - [facility] 04/27/2024 14:21:02 Social History None recorded. Functional Status None recorded. Mental Status None recorded. Family History Nothing Reported. Medical History No medical history recorded. Gynecological HistoryNo gynecological history recorded. Obstetrics History GPAL:G 0 P 0 0 0 0 Past Encounters Encounter ID Performer Location Encounter Start Date Encounter Closed Date Diagnosis/Indication Diagnosis SNOMED-CT Code Diagnosis ICD10 Code [id number] GRACE MARTINS MD [facility] on [address] [place] [address] 04/27/2024 14:02:11 04/27/2024 14:46:09 Impacted cerumen in right ear [id number] H61.21 Health Concerns Section Related Observation LastModified by Organization Detai ls LastModified Time None Recorded Concern Status LastModified by Organization Details LastModified Time None Recorded Advance Directives Directive None Recorded Payers Encounter Date Sequence Insurance Name Policy Number Policy Landin Covered Member ID Landin Member ID Guarantor Name 04/27/2024 1 [employer] [facility] [id number] Shantell Jamison [id number] Shantell Jamison Notes Date Note Type Note Provider Name and Address Organization Details Recorded Time 04/27/2024 text/html 64 year old female with a history of hearing loss. She wears hearing aids from [facility]. She recently went for new hearing aids, but she needed the cerumen removed prior to new ear molds. GRACE MARTINS MD [address] [place] [address], [place], [address], [facility] 04/30/2024 07:49:39 OBGyn Episode No OBEpisode recorded.
--- OUTSIDE RECORDS SUMMARY | 2024-07-28 07:29 | XMS_ITS | Data Portability ---
Author Organization [facility] [address] Address [address] [place] [address] Care Team Providers Care Framing Consultant Name Role Phone SHWETA GRECO Primary Care Provider Assessment No assessment recorded. Plan of Treatment Reminders Order Date Submit Date Provider Last Modified By Organization Details Last Modified Time Details Appointments None recorded. Lab None recorded. Referral None recorded. Procedures None recorded. Surgeries None recorded. Imaging None recorded. Medication Orders ciprofloxac in 0.3 %-dexametha sone 0.1 % ear drops,suspe nsion 2023 024 [id number], [address] [place], [address], 20:07:30 Patient TargetsNo targets recorded. Patient Instructions Encounter Date Encounter Id Patient Instructions Last Modified By Organization Details Last Modified Time 01/19/2024 [id number] Follow up with your PCP in 4 weeks for an ear re-check [id number] Not available 01/19/2024 20:07:42 Reason for Referral None Reported. Problems Name Problem SNOMED Code Status Onset Date Resolution Date Notes Provider Name and Address Organization Details Recorded Time Hypertensive disorder 96712341 Active 2023 Carmen Bricault null, PA - [facility] 4 19:21:15 Hearing loss 28638076 Active 2023 Carmen Bricault null, PA - [facility] 19:21:31 Pain of ear 382866274 Active 2023 Carmen Bricault null, PA - [facility] 19:21:43 Problem Notes None recorded. Medical Equipment None Reported. Allergies No known drug allergies Medications Name Sig Start Date Stop Date Status Note LastModified by Organization Details LastModified Time atenolol 25 mg tablet Take 1 tablet every day by oral route. active Not Available Not Available No t Available lisinopril 10 mg tablet Take 1 tablet every day by oral route. active Not Available Not Available No t Available ciprofloxacin 0.3 %-dexamethasone 0.1 % ear drops,suspensio n INSTILL 2 DROPS INTO LEFT EAR 3 TIMES PER DAY FOR 7 DAYS 2023 active Not Available Not Available Not Avai lable Yuvafem 10 mcg vaginal tablet Insert 1 tablet twice a week by vaginal route for 14 days. active Not Available Not Available No t Available Vitals Date Recorded Body height Body mass index (BMI) Body weight Respiratory rate Oxygen saturation Oxygen saturation in Arterial blood by Pulse oximetry Heart rate Body temperature Systolic blood pressure Diastolic blood pressure Provider Name and Address Organization Details Last Updated DateTime 157.48 cm 32.6 kg/m2 36277.4 4 g 17 /min 98 % 98 % 92 /min 97.3 [degF] 154 mm[Hg] 97 mm[Hg] Carmen Nance PA - [facility] 19:26:13 Social History Question Answer Notes LastModified by Organizat ion Details LastModified Time Tobacco Smoking Status Never Smoker Carmen grace, PA - [facility] 01/19/2024 19:22:09 What Is Your Level Of Alcohol Consumption? None Information not available 01/19/2024 Are You Currently Employed? Yes Information not available 01/19/2024 Have You Had A Flu Shot This Season? Yes Information not available 01/19/2024 If No, Would You Like A Flu Shot Today? No Information not available 01/19/2024 Have You Had Direct Contact, Or Contact During Intimacy, With Monkeypox Rash, Scabs, Or Body Fluids From A Person With Monkeypox? No Information not available 01/19/2024 Have You Recently Traveled Abroad? No Information not available 01/19/2024 Are You Currently In School? No Information not available 01/19/2024 Do You Or Have You Ever Used Any Other Forms Of Tobacco Or Nicotine? No Information not available 01/19/2024 Sex: Unknown Functional Status None recorded. Mental Status None recorded. Family History Relationship Description Onset Age of this Age Resolved Age Notes LastModified by Organization Details LastModified Time Father No current problems or disability Not available 12/25 19:21:50 Mother No current problems or disability Not available 12/25 19:21:50 Medical History No medical history recorded. Gynecological History Statement/Question Response Is there any chance of ? No LMP N/A Obstetrics History GPAL:G 0 P 0 0 0 0 Past Encounters Encounter ID Performer Location Encounter Start Date Encounter Closed Date Diagnosis/Indication Diagnosis SNOMED-CT Code Diagnosis ICD10 Code [id number] [facility] [address] [address] 11/11/2019 12:57:56 11/11/2019 13:23:09 [id number] [facility] [address] [address] 05/28/2019 08:27:45 05/28/2019 08:52:13 [id number] TERRY BUTCHER MD [facility] [address] [address] 01/19/2024 18:53:23 01/24/2024 14:50:35 Otitis externa of left ear 4124914500 113518 H60.92 Health Concerns Section Related Observation LastModified by Organization Detai ls LastModified Time None Recorded Concern Status LastModified by Organization Details LastModified Time None Recorded Advance Directives Directive None Recorded Payers Encounter Date Sequence Insurance Name Policy Number Policy Landin Covered Member ID Landin Member ID Guarantor Name 11/11/2019 1 [employer]) [id number] Shantell French Jamison [id number] Shantell [place]ri[place] 01/19/2024 1 [employer] [id number] Shantell French Jamison [id number] Shantelljensen Jamison Notes Date Note Type Note Provider Name and Address Organization Details Recorded Time 01/19/2024 text/html Ear Pain Brief HPIReported bypatient.Location :pain radiates to jaw; left Onset/Timing:new onset; started 4days ago; sudden onset Duration:constant pain Quality:no itching; no discharge from the ears; no burning Severity:no fever; able to perform daily activities; no interference with sleep; moderate pain Context:no recent URI; no recent trauma; no recent ear infection; no recent swimming; no immunocompromise; no dental problems; no recent airplane travel; no scuba diving; non-smoker Alleviating factors:warm compress Aggravating factors:hearing aid; chewing Associated Symptoms:no cough; no jaw popping or clicking; No decreased appetite; no nasal congestion; no nasal discharge; no hearing loss; no sore throat; no dental pain; no tinnitus;discharge from ear;sense of fullness/pressure; jaw pain; no decreased hearing; no muffled hearing LT internal and external; radiating down x 4 days She wears hearing aids TERRY BUTCHER MD [address] [place] [address] [place], [address], PA - [facility] 01/20/2024 19:43:09 OBGyn Episode No OBEpisode recorded.
--- OUTSIDE RECORDS SUMMARY | 2024-07-28 07:29 | XMS_ITS | Continuity of Care Document ---
Author Organization [place] - [facility], [facility] Address [address] [place] [address] Care Team Providers Care Speech And Language Assistant Name Role Phone SHWETA GRECO Primary Care Provider Assessment Encounter Date Assessment Date Assessment LastModified [...] sensorine ural hearing loss of left ear 26044283627 107 Active 2022 Mixed conductiv e and sensorine ural hearing loss, unilatera l, left ear with restricte d hearing on the contralat eral side; Note: Date Diagnosed : 12/14/2022 3:20 PM (H90.A32) Not Available [facility] 4 02:41:16 Otosclero sis 50837895 Active 2022 Unspecifi ed otosclero sis, left ear; Note: Date Diagnosed : 12/14/2022 3:20 PM (H80.92) Not Available [facility] 4 02:41:07 Sensorine ural hearing loss in right ear 61406625892 100 Active 2022 Sensorine ural hearing loss, unilatera l, right ear, with restricte d hearing on the contralat eral side; Note: Date Diagnosed : 12/14/2022 3:20 PM (H90.A21) Not Available [facility] 4 02:41:15 Impacted cerumen in right ear 90945084922 89278 Active 2023 NOMI LAROSE PA-C [address] [place] [address],[facility] [address], [place], [address] , [facility] - [facility] 4 14:42:11 Problem Notes None recorded. [...] Updated DateTime 04/27/2024 157.48 cm 32 kg/m2 79640.66 g Almas Chiu [place] - [facility] 04/27/2024 14:21:02 Social History None recorded. Functional Status None recorded. Mental Status None recorded. Family History Nothing Reported. Medical History No medical history recorded. Gynecological HistoryNo gynecological history recorded. Obstetrics History GPAL:G 0 P 0 0 0 0 Past Encounters Encounter ID Performer Location Encounter Start Date Encounter Closed Date Diagnosis/Indication Diagnosis SNOMED-CT Code Diagnosis ICD10 Code [id number] GRACE MARTINS MD [facility] on [address] [place] [address] 04/27/2024 14:02:11 04/27/2024 14:46:09 Impacted cerumen in right ear 9999306652 420643 H61.21 Health Concerns Section Related Observation LastModified by Organization Detai ls LastModified Time None Recorded Concern Status LastModified by Organization Details LastModified Time None Recorded Payers Encounter Date Sequence Insurance Name Policy Number Policy Landin Covered Member ID Landin Member ID Guarantor Name 04/27/2024 1 [employer] OF [facility] ([facility]) [id number] Shantell Jamison [id number] Shantell Jamison Notes Date Note Type Note Provider Name and Address Organization Details Recorded Time 04/27/2024 text/html 64 year old female with a history of hearing loss. She wears hearing aids from [facility]. She recently went for new hearing aids, but she needed the cerumen removed prior to new ear molds. GRACE MARTINS MD [address] [place] [address], [place], [address], [facility] 04/30/2024 07:49:39 OBGyn Episode No OBEpisode recorded.
== END 2024-07-28 07:24 | disposition home or self-care (01) ==
LOC: HO.MAMMO 07:23
PROVIDERS: PCP Internal Medicine; Visit Provider Internal Medicine
DX: Z12.31 Encounter for screening mammogram for malignant neoplasm of breast (principal)
CPT/HCPCS: 77063; 77067

== ENCOUNTER → 2024-07-28 07:30 | Outpatient (BNV) | payer OTHER, SELFPAY | PROVIDERS: PCP Internal Medicine; Visit Provider Internal Medicine | DX: Z12.31 Encounter for screening mammogram for malignant neoplasm of breast (principal) | CPT/HCPCS: 77063; 77067 ==

== ENCOUNTER 2024-10-31 14:46 | Outpatient (AMB) | payer OTHER, SELFPAY ==
--- NOTE | 2024-10-31 14:52 | MHC.OFFVIS ---
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 States on 10/12/24 her finger was caught in between the bathroom door. She cleaned and wrapped her finger herself and hoped it would get better. Reports she has had numbness on her DIP joint since the injury, she is able to make a fist with no issues. Hx of left middle mallet finger treated with a splint for 8 weeks, Right hand CTR 03/20/21 and left CTR 04/16/22. 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 She says she cut her finger on the lock of a bathroom door. She managed this herself at home. 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 She complains of numbness from her middle finger DIP joint to the tip of her finger, since her injury. She denies any numbness in her other fingers. She says she can make a fist without difficulty. She has a Hx of a left middle finger mallet deformity in ~2018 years ago that was treated successfully with a splint . 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 Review of Systems Const All systems reviewed & are unremarkable except as noted in HPI and below Physical Exam Vital Signs: BMI result Body Mass Index 31.5 Const General: no acute distress and alert Orientation/consciousness: patient oriented x3 Neuro General: patient oriented x3 Extrem Other: Evaluation of Left Upper Extremity: The patient is alert, oriented, and in no acute distress Neuro: Median, Ulnar, Radial nerves motor and sensory intact and sensation is normal to the tips of all digits, except for numbness to the far radial aspect of the pad of the middle finger Vascular: Cap refill brisk ROM: She can make a fist and extend all her digits No locking or catching Small healed laceration over the radial middle finger, just distal to the DIP joint Psych Appearance: grossly normal Affect: normal affect Attitude: cooperative Assessment & Plan Assessment & Plan (1) Finger numbness: Comment: French DELAROSA Code(s): R20.0 - Anesthesia of skin Category: Medical (2) Laceration of left middle finger: Code(s): S61.213A - Laceration without foreign body of left middle finger without damage to nail, initial encounter Category: Medical (3) Crushing injury of left middle finger: Code(s): S67.193A - Crushing injury of left middle finger, initial encounter Category: Medical Plan Assessment & Plan: 1. Left middle finger crush injury, with laceration & injury to the radial digital nerve just distal to the DIP joint S/P crush injury from a door, DOI: 10/12/24 I educated her about this condition I explained that there are no operative interventions for her injury. At this point all she can do is wait and see if she heals and has any sensation return I recommend she work on gentle ROM exercises at home, and she should be mindful to not expose her fingertip to the cold when possible She can follow up prn 2. Left carpal tunnel syndrome, S/P release DOS: 04/16/22 Pre-operative symptoms intermittent, but daily, worse in the mornings Post-operatively with improved sensation and resolution of nighttime symptoms. 3. Right carpal tunnel syndrome, S/P release DOS: 03/20/21 With normal sensation at this time Scribed for Jaz Gresham MD by Yann Shay biomedical scientist, on 10/31/24 at 3:05 PM, EST. Scribe Plan - Not visible on output: Scribed for Jaz Gresham MD by Yann Shay, biomedical scientist, on [ ] at [ ], EST. Coding Level of Care Code Est Pt Level 4 (36571) Diagnoses Finger numbness R20.0 Laceration of left middle finger S61.213A Crushing injury of left middle finger S67.193A
[2024-10-31 14:53] VITALS: BMI 31.5
--- OUTSIDE RECORDS SUMMARY | 2024-10-31 17:51 | XMS_ITS | Patient Health Record ---
Author Organization [facility] Address [address] [place] [address] Care Team Providers Care Mechanical Cad Drafter Name Role Phone Travis Ramirez MD Primary Care Provider Nicola Tee Jr Unavailable [phone] Allergies No Known Allergies Reason For Referral No Information Medications Medication SIG (Take, Route, Frequency, Duration) Notes Start Date End Date Status Lisinopril 5 MG 1 tablet Orally Once a day Active Atenolol 25 MG 1 tablet Orally Once a day Active Yuvafem 10 MCG 1 tablet Vaginal Two times a Week Active MiraLax (colon prep) 17 GM/SCOOP mixed with Gatorade or Crystal Light Orally begin at 5:00 p.m. the day before the procedure for 1 day 10/08/2022 Active Immunizations Vaccine Route Administration Date Status Comme nts Influenza Unknown 03/26/2022 Administered Social History Tobacco Use: Social History Observation Description Date Details (start date - stop date) Former Smoker NA - NA Tobacco Use/Smoking Question Answer Notes Patient is a former smoker How long has it been since you last smoked? > 10 years Alcohol Screen Question Answer Notes Did you have a drink contain ing alcohol in the past year? Yes How often did you have a dri nk containing alcohol in the past year? Monthly or less (1 point) How many drinks did you have on a typical day when you were drinking in the past year? 1 or 2 drinks (0 point) How often did you have 6 or more drinks on one occasion in the past year? Never (0 point) Points 1 Interpretation Negative Problems Problem Type SNOMED Code ICD Code Onset Dates Problem Status W/U Status Risk Notes Problem 148721642 Colon cancer screening (Z12.11) Active confirmed Problem 34246622 Encounter for other preprocedural examination (Z01.818) Active confirmed Problem 105280491 FH: colon polyps (Z83.71) Active confirmed Problem 775180306 Gas bloat syndro me (K92.89) Active confirmed Plan Of Treatment Future Test Test Name Order Date COLONOSCOPY 05/27/2017 COLONOSCOPY 10/08/2022 Insurance Providers Payer Name Payer Address Payer Phone Subscriber Number Group Number Insured Name Patient Relationship to Insured Coverage Start Date Coverage End Date [employer] [place] [address] [address] [place] [address] [id number] DAY SHERMAN Self - patient is the insured Medical (General) History Medical History History ICD Code hypertension Surgical History Surgery Date(Month/Year) Left eye surgery x3 stapedectomy-left ear benign breast biopsies Bilateral carpal tunnel repair
--- OUTSIDE RECORDS SUMMARY | 2024-10-31 17:51 | XMS_ITS | Data Portability ---
Author Organization [facility] [address] Address [address] [place] [address] Care Team Providers Care Fish Net Stringer Name Role Phone SHWETA GRECO Primary Care Provider Assessment No assessment recorded. Plan of Treatment Reminders Order Date Submit Date Provider Last Modified By Organization Details Last Modified Time Details Appointments None recorded. Lab None recorded. Referral None recorded. Procedures None recorded. Surgeries None recorded. Imaging None recorded. Medication Orders ciprofloxac in 0.3 %-dexametha sone 0.1 % ear drops,suspe nsion 2023 024 [id number], [address] [place], [address], 20:07:30 Patient TargetsNo targets recorded. Patient Instructions Encounter Date Encounter Id Patient Instructions Last Modified By Organization Details Last Modified Time 01/19/2024 [id number] Follow up with your PCP in 4 weeks for an ear re-check [id number] Not available 01/19/2024 20:07:42 Reason for Referral None Reported. Problems Name Problem SNOMED Code Status Onset Date Resolution Date Notes Provider Name and Address Organization Details Recorded Time Hypertensive disorder 26117167 Active 2023 Carmen Bricault null, PA - [facility] 4 19:21:15 Hearing loss 64966381 Active 2023 Carmen Bricault null, PA - [facility] 19:21:31 Pain of ear 708677287 Active 2023 Carmen Bricault null, PA - [...] mass index (BMI) Body weight Respiratory rate Pain severity - 0-10 verbal numeric rating [Score] - Reported Oxygen saturation Oxygen saturation in Arterial blood by Pulse oximetry Heart rate Body temperature Systolic blood pressure Diastolic blood pressure Provider Name and Address Organization Details Last Updated DateTime 157.48 cm 32.6 kg/m2 04217.4 4 g 17 /min 5 98 % 98 % 92 /min 97.3 [degF] 154 mm[Hg] 97 mm[Hg] Carmen Nance PA - [facility] 19:26:13 Social History Question Answer Notes LastModified by Organizat ion Details LastModified Time Tobacco Smoking Status Never Smoker Carmen grace PA - [facility] 01/19/2024 19:22:09 What [...] Diagnosis/Indication Diagnosis SNOMED-CT Code Diagnosis ICD10 Code Diagnosis Note [id number] [facility] [address] [address] 11/11/2019 12:57:56 11/11/2019 13:23:09 [id number] [facility] [address] 05/28/2019 08:27:45 05/28/2019 08:52:13 [id number] TERRY BUTCHER MD [facility] [address] 01/19/2024 18:53:23 01/24/2024 14:50:35 Otitis externa of left ear 6818069426 545352 H60.92 Health Concerns Section Related Observation LastModified by Organization Detai ls LastModified Time None Recorded Concern Status LastModified by Organization Details LastModified Time None Recorded Advance Directives Directive None Recorded Payers Encounter Date Sequence Insurance Name Policy Number Policy Landin Covered Member ID Landin Member ID Guarantor Name 11/11/2019 1 [employer] [id number] [id number] Shantell Jamison [id number] Shantell Jamison 01/19/2024 1 [employer] [id number] Shantell Jamison [id number] Shantell Jamison Notes Date Note Type Note [...] She wears hearing aids TERRY BUTCHER MD [address] [place], [address], [place] - [facility] 01/20/2024 19:43:09 OBGyn Episode No OBEpisode recorded.
--- OUTSIDE RECORDS SUMMARY | 2024-10-31 17:51 | XMS_ITS | Data Portability ---
Author Organization [place] - [facility], Allergy Address [address] [address] Care Team Providers Care Plate Conditioner Name Role Phone SHWETA GRECO Primary Care [...] sensorine ural hearing loss of left ear [id number] 107 Active 2022 Mixed conductiv e and sensorine ural hearing loss, unilatera l, left ear with restricte d hearing on the contralat eral side; Note: Date Diagnosed : 12/14/2022 3:20 PM (H90.A32) Not Available [facility] 4 02:41:16 Otosclero sis [id number] Active 2022 Unspecifi ed otosclero sis, left ear; Note: Date Diagnosed : 12/14/2022 3:20 PM (H80.92) Not Available [facility] 4 02:41:07 Sensorine ural hearing loss in right ear [id number] 100 Active 2022 Sensorine ural hearing loss, unilatera l, right ear, with restricte d hearing on the contralat eral side; Note: Date Diagnosed : 12/14/2022 3:20 PM (H90.A21) Not Available [facility] 4 02:41:15 Impacted cerumen in right ear [id number] 75340 Active 2023 Joan grace [place] - [facility] 4 14:42:11 Problem Notes None recorded. Medical [...] Updated DateTime 04/27/2024 157.48 cm 32 kg/m2 35783.66 g Almas Chiu [place] - [facility] 04/27/2024 14:21:02 Social History None recorded. Functional Status None recorded. Mental Status None recorded. Family History Nothing Reported. Medical History No medical history recorded. Gynecological HistoryNo gynecological history recorded. Obstetrics History GPAL:G 0 P 0 0 0 0 Past Encounters Encounter ID Performer Location Encounter Start Date Encounter Closed Date Diagnosis/Indication Diagnosis SNOMED-CT Code Diagnosis ICD10 Code Diagnosis Note [id number] GRACE MARTINS MD [facility] on [address] [place] [address] 04/27/2024 14:02:11 04/27/2024 14:46:09 Impacted cerumen in right ear [id number] 537460 H61.21 Health Concerns Section Related Observation LastModified by Organization Detai ls LastModified Time None Recorded Concern Status LastModified by Organization Details LastModified Time None Recorded Advance Directives Directive None Recorded Payers Encounter Date Sequence Insurance Name Policy Number Policy Landin Covered Member ID Landin Member ID Guarantor Name 04/27/2024 1 [employer] [place] [id number] Shantell Jamison [id number] Shantell Jamison Notes Date Note Type Note Provider Name and Address Organization Details Recorded Time 04/27/2024 text/html 64 year old female with a history of hearing loss. She wears hearing aids from [facility]. She recently went for new hearing aids, but she needed the cerumen removed prior to new ear molds. GRACE MARTINS MD [address] [place] [address], [phone], [facility] 04/30/2024 07:49:39 OBGyn Episode No OBEpisode recorded.
== END 2024-10-31 15:18 | disposition home or self-care (01) ==
LOC: HO.HOS 14:46
PROVIDERS: PCP Internal Medicine; Visit Provider Orthopaedic Surgery
DX: R20.0 Anesthesia of skin (principal); S61.213A Laceration without foreign body of left middle finger without damage to nail, initial encounter; S67.193A Crushing injury of left middle finger, initial encounter
CPT/HCPCS: 99214

== ENCOUNTER 2025-01-17 13:03 | Outpatient (REF) | payer SELFPAY ==
--- OUTSIDE RECORDS SUMMARY | 2025-01-17 15:15 | XMS_ITS | Data Portability ---
Author Organization [place] - [facility], Allergy Address [address] [address] Care Team Providers Care Quality Assurance Project Manager Name Role Phone SHWETA GRECO Primary Care [...] sensorine ural hearing loss of left ear [id number] 107 Active 2022 Mixed conductiv e and sensorine ural hearing loss, unilatera l, left ear with restricte d hearing on the contralat eral side; Note: Date Diagnosed : 12/14/2022 3:20 PM (H90.A32) Not Available [facility] 4 02:41:16 Otosclero sis 71964287 Active 2022 Unspecifi ed otosclero sis, left ear; Note: Date Diagnosed : 12/14/2022 3:20 PM (H80.92) Not Available [facility] 4 02:41:07 Sensorine ural hearing loss in right ear [id number] 100 Active 2022 Sensorine ural hearing loss, unilatera l, right ear, with restricte d hearing on the contralat eral side; Note: Date Diagnosed : 12/14/2022 3:20 PM (H90.A21) Not Available [facility] 4 02:41:15 Impacted cerumen in right ear [id number] 59991 Active 2023 Joan grace [place] - [facility] 14:42:11 Problem Notes None recorded. Medical Equipment [...] Updated DateTime 04/27/2024 157.48 cm 32 kg/m2 21652.66 g Almas Chiu [place] - [facility] 04/27/2024 14:21:02 Social History None recorded. Functional Status None recorded. Mental Status None recorded. Family History Nothing Reported. Medical History No medical history recorded. Gynecological HistoryNo gynecological history recorded. Obstetrics History GPAL:G 0 P 0 0 0 0 Past Encounters Encounter ID Performer Location Encounter Start Date Encounter Closed Date Diagnosis/Indication Diagnosis SNOMED-CT Code Diagnosis ICD10 Code Diagnosis Note [id number] JOAN LAROSE PA-C [facility] on [address] [place] [address] 04/27/2024 14:02:11 04/27/2024 14:46:09 Impacted cerumen in right ear [id number] 321975 H61.21 Health Concerns Section Related Observation LastModified by Organization Detai ls LastModified Time None Recorded Concern Status LastModified by Organization Details LastModified Time None Recorded Advance Directives Directive None Recorded Payers Insurance Date Sequence Insurance Name Policy Number Policy Landin Covered Member ID Landin Member ID Guarantor Name 05/01/2024 1 [employer] [facility] [id number] Shantell Jamison [id number] Shantell Jamison Notes Date Note Type Note Provider Name and Address Organization Details Recorded Time 04/27/2024 text/html 64 year old female with a history of hearing loss. She wears hearing aids from [facility]. She recently went for new hearing aids, but she needed the cerumen removed prior to new ear molds. GRACE MARTINS MD [address] [place] [address], [phone], [facility] - [facility] 04/30/2024 07:49:39 OBGyn Episode No OBEpisode recorded.
== END 2025-01-17 13:04 | disposition home or self-care (01) ==
LOC: HO.HAP 13:03
PROVIDERS: Visit Provider Internal Medicine
DX: Z46.1 Encounter for fitting and adjustment of hearing aid (principal); H90.3 Sensorineural hearing loss, bilateral
CPT/HCPCS: V5267

== ENCOUNTER 2025-01-18 15:31 | Outpatient (REF) | payer OTHER, SELFPAY ==
--- NOTE | ~2025-01-18 | XR_ITS ---
EXAMINATION: XR FOOT, LEFT CLINICAL INFORMATION: M79.672 - Pain in left foot COMPARISON: None available. TECHNIQUE: AP, lateral, and oblique views of the left foot. FINDINGS: Degenerative changes with osteophytes and sclerosis is noted involving the lateral sesamoid of the great toe. There is splaying of the second and third digits. Moderate size plantar calcaneal enthesophyte is present. XR/XR foot LT 2V IMPRESSION: There is splaying of the second and third toes. This is weakly associated with Cummings's neuroma. If there clinical signs symptoms of Cummings's neuroma, consider forefoot MRI without and with IV contrast. Degenerative changes involving the lateral sesamoid and first metatarsal. Calcaneal spur, nonspecific finding. Electronically signed by: Gavin Molina MD 01/18/2025 05:17 PM EDT
== END 2025-01-18 15:32 | disposition home or self-care (01) ==
LOC: HO.XRAY 15:31
PROVIDERS: PCP Internal Medicine; Visit Provider Internal Medicine
DX: I10 Essential (primary) hypertension (principal); E78.5 Hyperlipidemia, unspecified; M79.672 Pain in left foot; I83.893 Varicose veins of bilateral lower extremities with other complications; H91.90 Unspecified hearing loss, unspecified ear; E66.811 Obesity, class 1; Z68.32 Body mass index [BMI] 32.0-32.9, adult; G56.03 Carpal tunnel syndrome, bilateral upper limbs; Z79.899 Other long term (current) drug therapy; Z13.31 Encounter for screening for depression; Z13.39 Encounter for screening examination for other mental health and behavioral disorders
CPT/HCPCS: 73620; 96127

== ENCOUNTER 2025-01-18 15:31 | Outpatient (AMB) | payer OTHER, SELFPAY ==
[2025-01-18 15:39] VITALS: BP 120/72; PULSE 72; TEMP 36.2; O2SAT 98; BMI 32.1
--- NOTE | 2025-01-18 15:39 | A.OFFPC_ITS ---
Vital Signs 01/18/25 15:39 Height 5 ft 3 in Weight 181 lb BMI 32.1 BP 120/72 Blood Pressure Location Rt brachial Position Sitting Pulse 72 Pulse Source Pulse Oximeter Temp 97.1 F Temp Source Axillary Pulse Oximetry (%) 98 Oxygen Delivery Method Room Air Intake Visit Reasons: Routine Human Resources Operations Manager Required: No Accompanied by: Self / Same As Patient Allergies No Known Allergies (No Known Allergies*) Allergy (Verified 01/18/25 15:40) Tobacco use date assessed: 01/18/25 Dental Screening Dental Screen Date: 01/18/25 Did you have a dental visit in the last 12 months?: Yes Did you have a dental problem in the last 6 months where you did not have access to dental care?: No HPI HPI Comments History of Present Illness Details The patient is a 64 year old female with a past medical history of htn, CTS b/l presenting for follow up. [place] [employer] [place]N-on atenolol, hctz. 120/72. Denies chest pain, exertional dyspea. Frustrated by inability to lose weight despite diet and exercise. Chronic b/l LE swelling discomfort. Varicose veins bilaterally. Left foot pain and swelling at time. She has rolled the ankles a few times Decreased hearing needs to update hearing test Frequent headaches. 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 NAD EYES: EOMI. Anicteric. HENT: Moist mucous membranes. No scleral icterus. No cervical lymphadenopathy. LUNGS: Clear to auscultation bilaterally. CARDIOVASCULAR: Regular rate and rhythm. No murmur. No JVD. ABDOMEN: Soft, non-tender +bs EXTREMITIES: No edema. Non-tender. SKIN: No rashes or lesions. Warm. NEUROLOGIC: No focal neurological deficits. CN II-XII grossly intact PSYCHIATRIC: Cooperative. Appropriate mood and affect [facility] Medical History High blood pressure Surgical History History of breast biopsy History of carpal tunnel surgery of right wrist (~03/20/22) History of carpal tunnel surgery of left wrist (~04/16/22) History of History of stapedectomy Hx of eye surgery Family History Mother No problems noted. Father No problems noted. 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 1. Little interest or pleasure in doing things: not at all 2. Feeling down, depressed, or hopeless: not at all 3. Trouble falling or staying asleep, or sleeping too much: not at all 4. Feeling tired or having little energy: not at all 5. Poor appetite or overeating: not at all 6. Feeling bad about yourself - or that you are a failure or have let yourself or your family down: not at all 7. Trouble concentrating on things, such as reading the newspaper or watching television: not at all 8. Moving or speaking so slowly that other people could have noticed. Or the opposite - being so fidgety or restless that you have been moving around a lot more than usual: not at all 9. Thoughts that you would be better off or of hurting yourself in some way: not at all Total score: 0 Depression Screening Interpretation: Negative Depression Screening Done: Yes 56482 - PHQ-9 Billing: Yes Source: Developed by Drs. Marlon Villa, Lina Hurt, Primitivo Hughes and colleagues, with an educational mo from [employer]. Thrive Questionnaire Date Thrive assessed: 01/18/25 I am a: Patient Within the past 12 months, did the food you bought not last and you didn't have the money to get more?: Never true Within the past 12 months, did you worry whether your food would run out before you got money to buy more?: Never true Do you have trouble paying for medicines?: No Do you have trouble getting transportation to medical appointments?: No Do you have trouble paying your heating and electricity bill?: No Do you have trouble taking care of your child, family member or friend?: No Do you have trouble with day-to-day activities such as bathing, preparing meals, shopping, managing finances, etc.?: No Are you currently unemployed and looking for a job?: No Are you interested in more education?: No THRIVE Score: 0 AUDIT C Alcohol Use Questionnaire (AUDIT-C) 1. How often do you have a drink containing alcohol?: Monthly or less 2. How many drinks containing alcohol do you have on a typical day when you are drinking?: 1 or 2 3. How often do you have six or more drinks on one occasion?: Less than monthly Total Score: 2 CONNIE-7 AMB Questionnaire CONNIE-7 Date CONNIE - 7 assessed: 01/18/25 Feeling nervous, anxious, or on edge: 0 = Not at all Not being able to stop or control worryin = Not at all Worrying too much about different things: 0 = Not at all Trouble relaxin = Not at all Being so restless that it is hard to sit still: 0 = Not at all Becoming easily annoyed or irritable: 0 = Not at all Feeling afraid as if something awful might happen: 0 = Not at all Total CONNIE-7 score (0-4 normal; 5-9 mild; 10-14 moderate; 15-21 severe): 0 Source: Developed by Drs. Marlon Villa, Lina Hurt, Primitivo Hughes and colleagues, with an educational mo from [employer]. Physical exam (Primary Care) Vital Signs: Last Vital Signs Temp 97.1 F 01/18/25 15:39 Pulse 72 01/18/25 15:39 BP 120/72 01/18/25 15:39 Pulse Ox 98 01/18/25 15:39 Oxygen Delivery Method Room Air 01/18/25 15:39 BMI result Body Mass Index 32.1 Tobacco/Smoking Status: Tobacco use Status Tobacco use date assessed 01/18/25 01/18/25 15:47 Patient Tobacco Use Status Never used Tobacco 01/18/25 15:47 e-Cigarette/Vaping Use Never Used 01/18/25 15:47 PHQ-9: PHQ-9 Score PHQ-9: Total score 0 01/18/25 15:48 Depression Screening Interpretation: Negative Thrive Assessment: Date of Thrive Assessment Date Thrive assessed 01/18/25 01/18/25 15:47 Coding Level of Care Code New Pt Level 4 (17823) Complex EM visit Add On G2211 Diagnoses Primary hypertension I10 Hypertension type: primary hypertension Dyslipidemia E78.5 Left foot pain M79.672 Additional Codes PHQ-9 - 41468 - PHQ-9 Billing: Yes ([id number]) Assessment & Plan Assessment & Plan (1) High blood pressure: Code(s): I10 - Essential (primary) hypertension Category: Medical Qualifiers: Hypertension type: primary hypertension Qualified Code(s): I10 - Essential (primary) hypertension (2) Dyslipidemia: Code(s): E78.5 - Hyperlipidemia, unspecified Category: Medical (3) Left foot pain: Code(s): M79.672 - Pain in left foot Category: Medical Plan 64 year old to establish care Past medical, surgical, social reviewed Foot pain-xray, b/l varicosities referal to vascular. Labs ordered for foot cramping Hearing loss-referral ordered family h/o hemochromatosis, requests testing Dermatology referral Orders: Orders Complete Blood Count Auto Diff 01/18/25 E78.5 - Hyperlipidemia, unspecified, I10 - Essential (primary) hypertension, R73.09 - Other abnormal glucose, Z13.0 - Encounter for screening for diseases of the blood and blood-forming organs and certain disorders involving the immune mechanism Lipid Panel 01/18/25 E78.5 - Hyperlipidemia, unspecified, I10 - Essential (primary) hypertension, R73.09 - Other abnormal glucose, Z13.0 - Encounter for screening for diseases of the blood and blood-forming organs and certain disorders involving the immune mechanism TSH reflex Free T4 01/18/25 E78.5 - Hyperlipidemia, unspecified, I10 - Essential (primary) hypertension, R73.09 - Other abnormal glucose, Z13.0 - Encounter for screening for diseases of the blood and blood-forming organs and certain disorders involving the immune mechanism Vitamin B12 and Folate 01/18/25 E78.5 - Hyperlipidemia, unspecified, I10 - Essential (primary) hypertension, R73.09 - Other abnormal glucose, Z13.0 - Encounter for screening for diseases of the blood and blood-forming organs and certain disorders involving the immune mechanism IRON PROFILE 01/18/25 R25.2 - Cramp and spasm Magnesium 01/18/25 R25.2 - Cramp and spasm Comprehensive Met. Panel 01/18/25 E78.5 - Hyperlipidemia, unspecified, I10 - Essential (primary) hypertension, R73.09 - Other abnormal glucose, Z13.0 - Encounter for screening for diseases of the blood and blood-forming organs and certain disorders involving the immune mechanism XR foot LT 2V 01/18/25 M79.672 - Pain in left foot Hemoglobin A1c 01/18/25 R25.2 - Cramp and spasm DNA Analysis Hemochromatosis 01/18/25 Z83.49 - Family history of other endocrine, nutritional and metabolic diseases Referrals Vascular Surgery Referral I83.893 - Varicose veins of bilateral lower extremities with other complications Speech and Hearing Referral H91.90 - Unspecified hearing loss, unspecified ear Dermatology Referral Z12.83 - Encounter for screening for malignant neoplasm of skin Medications: New Zepbound (tirzepatide (weight loss)) for 4 weeks 2.5 mg (0.5 mL) subcut QWEEK 2 mL 3RF NS E66.811 - Obesity, class 1, E78.5 - Hyperlipidemia, unspecified, I10 - Essential (primary) hypertension lidocaine-prilocaine 2.5-2.5 % 1 appl topical BID 30 grams 1RF
== END 2025-01-18 16:21 | disposition home or self-care (01) ==
LOC: HO.HMCHD 15:32
PROVIDERS: PCP Internal Medicine; Visit Provider Internal Medicine
DX: I10 Essential (primary) hypertension (principal); E78.5 Hyperlipidemia, unspecified; M79.672 Pain in left foot

== ENCOUNTER → 2025-01-18 16:31 | Outpatient (BNV) | payer OTHER, SELFPAY | PROVIDERS: PCP Internal Medicine; Visit Provider Radiology Diagnostic Radiology | DX: M19.072 Primary osteoarthritis, left ankle and foot (principal) | CPT/HCPCS: 73620 ==

== ENCOUNTER 2025-02-01 14:23 | Outpatient (AMB) | payer OTHER, SELFPAY ==
[2025-02-01 14:26] VITALS: BMI 32.1
--- NOTE | 2025-02-01 14:26 | MHC.OFFVIS ---
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 Complaints include pain over varicosities, swelling of lower extremities, cramping, fatigue, and heaviness of the lower extremities. 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 It is noted more so in left leg. Patient denies any previous venous surgery or injections. Patient denies any history of DVT/ PE. Patient denies any history of phlebitis. Trial of compression includes - [id number] They now present for vascular evaluation regarding their varicose veins. [facility] Medical History High blood pressure Surgical History History of breast biopsy History of carpal tunnel surgery of right wrist (~03/20/22) History of carpal tunnel surgery of left wrist (~04/16/22) History of History of stapedectomy Hx of eye surgery Family History Mother No problems noted. Father No problems noted. 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 Cognitive needs: No Hearing needs: No Vision needs: Yes (rx glasses) Review of Systems Const Reports as per HPI ENT Reports no additional complaints Card Denies chest pain, Denies chest pain at rest and Denies chest pain with activity Resp Denies chest congestion and Denies cough GI Reports no additional complaints Musc Details: pain over varicosities, aching of lower extremities, swelling, cramping, heaviness and tiredness, itching Denies abnormal gait Skin/Breast Reports pruritus and Denies wounds Neuro Reports no additional complaints and Denies abnormal gait Psych Denies no additional complaints Physical Exam Vital Signs: BMI result Body Mass Index 32.1 Const General: cooperative, healthy appearing and comfortable Orientation/consciousness: oriented to person, oriented to place and oriented to time Neck Carotids: no bruits Chest Chest palpation & inspection: normal inspection of the chest and normal palpation of entire chest wall Resp Effort & Inspection: normal respiratory effort and able to speak in complete sentences Cardio Rate: regular rate Heart sounds: S1 normal heart sound present and S2 normal heart sound present Peripheral pulses: Peripheral pulses 2+ throughout GI Inspection: Yes normal to inspection Skin Other: +2 edema, large rope-like varicosities greater than 4 mm CEAP Classification C4 - skin color changes Ep - Etiology Primary As - superficial veins P - reflux General skin exam: dry skin Neuro General: oriented to person, oriented to place and oriented to time Extrem Right lower extremity: full ROM, normal capillary refill and edema Left lower extremity: full ROM, normal capillary refill and edema Psych Mental Status: mental status grossly normal Assessment & Plan Assessment & Plan (1) Varicose veins of left lower extremity with inflammation: Code(s): I83.12 - Varicose veins of left lower extremity with inflammation Category: Medical Plan: In short, the patient has evidence of venous insufficiency. I have discussed the pathophysiology with the patient. In addition I have provided informational material regarding venous disease to the patient. We have discussed conservative measures including compression, elevation, and exercise. I have also provided a handout regarding appropriate use of compression stockings and where to purchase good compression stockings as well. I have taken the liberty of ordering venous insufficiency testing with the patient. They will follow up with me after testing. The patient had an opportunity to ask questions regarding the treatment plan. All questions were answered. Imaging studies, laboratory studies and physical exam results were discussed and reviewed in detail. No major barriers to understanding were identified. The patient expressed understanding and agreement with the above treatment plan. The patient is aware they should contact our office by phone for worsening of the current condition or the appearance of new symptoms. Thank you for allowing me to participate in the vascular care of this patient. If you have any questions or concerns regarding the treatment for the above condition please do not hesitate to contact me. The office telephone contact is [phone]. This note is constructed using voice recognition software. While every effort has been made to ensure accuracy, radiology aide errors may have been included. Thank you for allowing me to participate in the care of your patient. Yours sincerely, Simeon Ngo MD, FACS, R.P.V.I. Orders: Orders US venous duplex LE BI 1 Week I83.12 - Varicose veins of left lower extremity with inflammation Coding Level of Care Code Est Pt Level 4 (62576) Diagnoses Varicose veins of left lower extremity with inflammation I83.12
--- OUTSIDE RECORDS SUMMARY | 2025-02-01 14:34 | XMS_ITS | Data Portability ---
Author Organization [place] - [facility], Allergy Address [address] [address] Care Team Providers Care Ophthalmology Surgical Technician Name Role Phone SHWETA GRECO Primary Care [...] sensorine ural hearing loss of left ear [id number] 107 Active 2022 Mixed conductiv e and sensorine ural hearing loss, unilatera l, left ear with restricte d hearing on the contralat eral side; Note: Date Diagnosed : 12/14/2022 3:20 PM (H90.A32) Not Available [facility] 4 02:41:16 Otosclero sis [id number] Active 2022 Unspecifi ed otosclero sis, left ear; Note: Date Diagnosed : 12/14/2022 3:20 PM (H80.92) Not Available [facility] 4 02:41:07 Sensorine ural hearing loss in right ear [id number] 100 Active 2022 Sensorine ural hearing loss, unilatera l, right ear, with restricte d hearing on the contralat eral side; Note: Date Diagnosed : 12/14/2022 3:20 PM (H90.A21) Not Available [facility] 4 02:41:15 Impacted cerumen in right ear [id number] 95903 Active 2023 Joan grace [place] - [facility] 14:42:11 Problem Notes None recorded. Medical Equipment [...] Updated DateTime 04/27/2024 157.48 cm 32 kg/m2 21256.66 g Almas Chiu [place] - [facility] 04/27/2024 14:21:02 Social History None recorded. Functional Status None recorded. Mental Status None recorded. Family History Nothing Reported. Medical History No medical history recorded. Gynecological HistoryNo gynecological history recorded. Obstetrics History GPAL:G 0 P 0 0 0 0 Past Encounters Encounter ID Performer Location Encounter Start Date Encounter Closed Date Diagnosis/Indication Diagnosis SNOMED-CT Code Diagnosis ICD10 Code Diagnosis Note [id number] JOAN LAROSE PA-C [facility] on [address] [facility] [place] [address] 04/27/2024 14:02:11 04/27/2024 14:46:09 Impacted cerumen in right ear [id number] 550013 H61.21 Health Concerns Section Related Observation LastModified by Organization Detai ls LastModified Time None Recorded Concern Status LastModified by Organization Details LastModified Time None Recorded Advance Directives Directive None Recorded Payers Insurance Date Sequence Insurance Name Policy Number Policy Landin Covered Member ID Landin Member ID Guarantor Name 05/01/2024 1 BLUE BENEFIT ADMINISTRATORS OF [facility] [id number] Shantell Jamison [id number] Shantell Jamison Notes Date Note Type Note Provider Name and Address Organization Details Recorded Time 04/27/2024 text/html 64 year old female with a history of hearing loss. She wears hearing aids from [facility]. She recently went for new hearing aids, but she needed the cerumen removed prior to new ear molds. GRACE MARTINS MD [address] [place] [address], [phone], [facility] - [facility] 04/30/2024 07:49:39 OBGyn Episode No OBEpisode recorded.
--- OUTSIDE RECORDS SUMMARY | 2025-02-01 14:34 | XMS_ITS | Patient Health Record ---
Author Organization [facility] Address [address] [place] [address] Care Team Providers Care Education Program Specialist Name Role Phone Travis Ramirez MD Primary Care Provider Nicola Tee Jr Unavailable [phone] Allergies No Known Allergies Reason For [...] Problem Status W/U Status Risk Notes Problem 753838240 Colon cancer screening (Z12.11) Active confirmed Problem 55879098 Encounter for other preprocedural examination (Z01.818) Active confirmed Problem 887472947 FH: colon polyps (Z83.71) Active confirmed Problem 308251701 Gas bloat syndro me (K92.89) Active confirmed Plan Of Treatment Future Test Test Name Order Date COLONOSCOPY 05/27/2017 COLONOSCOPY 10/08/2022 Insurance Providers Payer Name Payer Address Payer Phone Subscriber Number Group Number Insured Name Patient Relationship to Insured Coverage Start Date Coverage End Date 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 [address] [place] [address] [id number] DAY SHERMAN Self - patient is the insured Medical (General) History Medical History History ICD Code hypertension Surgical History Surgery Date(Month/Year) Left eye surgery x3 stapedectomy-left ear benign breast biopsies Bilateral carpal tunnel repair
== END 2025-02-01 15:05 | disposition home or self-care (01) ==
LOC: HO.HVS 14:23
PROVIDERS: PCP Internal Medicine; Visit Provider Surgery Vascular Surgery
DX: I83.12 Varicose veins of left lower extremity with inflammation (principal)
CPT/HCPCS: 99214

== ENCOUNTER 2025-02-06 07:21 | Outpatient (REF) | payer OTHER, SELFPAY ==
--- OUTSIDE RECORDS SUMMARY | 2025-02-06 07:23 | XMS_ITS | Data Portability ---
Author Organization [place] - [facility], Allergy Address [address] [address] Care Team Providers Care Search Engine Marketing Manager Name Role Phone SHWETA GRECO Primary [...] sensorine ural hearing loss of left ear [id number] 107 Active 2022 Mixed conductiv e and sensorine ural hearing loss, unilatera l, left ear with restricte d hearing on the contralat eral side; Note: Date Diagnosed : 12/14/2022 3:20 PM (H90.A32) Not Available [facility] 4 02:41:16 Otosclero sis 38189607 Active 2022 Unspecifi ed otosclero sis, left ear; Note: Date Diagnosed : 12/14/2022 3:20 PM (H80.92) Not Available [facility] 4 02:41:07 Sensorine ural hearing loss in right ear 82144314694 100 Active 2022 Sensorine ural hearing loss, unilatera l, right ear, with restricte d hearing on the contralat eral side; Note: Date Diagnosed : 12/14/2022 3:20 PM (H90.A21) Not Available [facility] 4 02:41:15 Impacted cerumen in right ear [id number] 39333 Active 2023 Joan grace [place] - [facility] 14:42:11 Problem Notes None recorded. Medical [...] Updated DateTime 04/27/2024 157.48 cm 32 kg/m2 99735.66 g Almas Chiu [place] - [facility] 04/27/2024 14:21:02 Social History None recorded. Functional Status None recorded. Mental Status None recorded. Family History Nothing Reported. Medical History No medical history recorded. Gynecological HistoryNo gynecological history recorded. Obstetrics History GPAL:G 0 P 0 0 0 0 Past Encounters Encounter ID Performer Location Encounter Start Date Encounter Closed Date Diagnosis/Indication Diagnosis SNOMED-CT Code Diagnosis ICD10 Code Diagnosis Note [id number] JOAN LAROSE PA-C [facility] on [address] [place] [address] 04/27/2024 14:02:11 04/27/2024 14:46:09 Impacted cerumen in right ear 6500898927 269589 H61.21 Health Concerns Section Related Observation LastModified by Organization Detai ls LastModified Time None Recorded Concern Status LastModified by Organization Details LastModified Time None Recorded Advance Directives Directive None Recorded Payers Insurance Date Sequence Insurance Name Policy Number Policy Landin Covered Member ID Landin Member ID Guarantor Name 05/01/2024 1 BLUE BENEFIT ADMINISTRATORS OF [facility] [id number] Shantell Jamison [id number] Shantell Jamison Notes Date Note Type Note Provider Name and Address Organization Details Recorded Time 04/27/2024 text/html 64 year old female with a history of hearing loss. She wears hearing aids from [facility]. She recently went for new hearing aids, but she needed the cerumen removed prior to new ear molds. GRACE MARTINS MD [address] [place] [address], [phone], [facility] - [facility] 04/30/2024 07:49:39 OBGyn Episode No OBEpisode recorded.
--- OUTSIDE RECORDS SUMMARY | 2025-02-06 07:24 | XMS_ITS | Patient Health Record ---
Author Organization [facility] Address [address] [place] [address] Care Team Providers Care Application Design Engineer Name Role Phone Ashley (RETIRED) Travis LUNA Primary Care Provide r Nicola Lind Jr Unavailable Allergies No Known Allergies Reason For Referral [...] Problem Status W/U Status Risk Notes Problem 186067407 Colon cancer screening (Z12.11) Active confirmed Problem 61120534 Encounter for other preprocedural examination (Z01.818) Active confirmed Problem 740502144 FH: colon polyps (Z83.71) Active confirmed Problem 085697869 Gas bloat syndro me (K92.89) Active confirmed Plan Of Treatment Future Test Test Name Order Date COLONOSCOPY 05/27/2017 COLONOSCOPY 10/08/2022 Insurance Providers Payer Name Payer Address Payer Phone Subscriber Number Group Number Insured Name Patient Relationship to Insured Coverage Start Date Coverage End Date 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 [address] [place] [address] [id number] DAY SHERMAN Self - patient is the insured Medical (General) History Medical History History ICD Code hypertension Surgical History Surgery Date(Month/Year) Left eye surgery x3 stapedectomy-left ear benign breast biopsies Bilateral carpal tunnel repair
[2025-02-06 07:36] LABS: MANUAL DIFF FLAG NO
[2025-02-06 08:47] LABS: Hemoglobin A1C 153.6141 umol/L; Total Hemoglobin (HGBA1C) 3599.2608 umol/L
[2025-02-06 08:50] LABS: Hematocrit 40.9 % (37.0-47.0); Hemoglobin 13.6 g/dl (12.0-16.0); Imm Gran Abs Auto 0.04 X10*3/uL (0.00-0.03); Imm Gran Pct Auto 0.5 % (0.0-0.4); Lymphocytes Absolute Auto 2.4 X10*3/uL (1.2-4.9); Mean Corpuscular HGB Conc 33.3 g/dl (31.0-35.0); Mean Corpuscular Hemoglobin 28.2 pg (27.0-33.0); Mean Corpuscular Volume 84.9 fL (80.0-98.0); NRBC Abs Auto 0.000 X10*3/uL (0.0-0.012); NRBC Pct Auto 0.0 /100WBC (0.0-0.2); Platelet Count 201 X10*3/uL (160-400); Red Blood Count 4.82 X10*6/uL (4.20-5.50); White Blood Count 8.7 X10*3/uL (4.8-10.8)
[2025-02-06 09:18] LABS: Alanine Aminotransferase 27 U/L (0-31); Albumin Level 4.6 g/dL (3.5-5.0); Alkaline Phosphatase 61 U/L (39-117); Anion Gap 12 (12-20); Aspartate Amino Transferase 23 U/L (5-31); Blood Urea Nitrogen 15 mg/dL (9-16); Calcium 9.5 mg/dL (8.4-10.2); Carbon Dioxide 28 mmol/L (22-29); Chloride 105 mmol/L (96-108); Cholesterol 202 mg/dL (<200); Estimated Glomerular Filt Rate > 60; HDL Cholesterol 52 mg/dL (>40); Iron 63 mcg/dL (30-160); Magnesium 2.0 mg/dL (1.6-2.6); Percent Iron Saturation 21 % (15-50); Potassium 4.2 mmol/L (3.3-5.1); Sodium 141 mmol/L (135-145); Total Iron Binding Capacity 305 mcg/dL (228-428); Total Protein 7.9 g/dL (6.5-8.0); Triglycerides 123 mg/dL (<150); Unsaturated Iron Binding 242 ug/dL
[2025-02-06 09:42] LABS: Folate 7.0 ng/mL (> or = 4.0); Vitamin B12 446 pg/mL (200-900)
== END 2025-02-06 07:22 | disposition home or self-care (01) ==
LOC: HO.LAB 07:21
PROVIDERS: PCP Internal Medicine; Visit Provider Internal Medicine
DX: Z13.0 Encounter for screening for diseases of the blood and blood-forming organs and certain disorders involving the immune mechanism (principal); I10 Essential (primary) hypertension; E78.5 Hyperlipidemia, unspecified; R73.09 Other abnormal glucose; R25.2 Cramp and spasm; Z83.49 Family history of other endocrine, nutritional and metabolic diseases
CPT/HCPCS: 36415; 80053; 80061; 81256; 82607; 82746; 83036; 83540; 83735; 84443; 85025

== ENCOUNTER 2025-03-08 10:26 | Outpatient (REF) | payer OTHER, SELFPAY ==
--- NOTE | ~2025-03-08 | US_ITS ---
EXAMINATION: US LOWER EXTREMITY VENOUS (REFLUX EXAM), BILATERAL CLINICAL INFORMATION: Varices. COMPARISON: None. TECHNIQUE: Color flow triplex imaging and compression Doppler was performed to evaluate both the deep and the superficial systems bilaterally. To evaluate the superficial system, the examination was performed in the upright position. Color-flow Doppler ultrasound and compression ultrasound were utilized. In addition, maneuvers were utilized to demonstrate reflux. FINDINGS: 1. DEEP VENOUS ULTRASOUND OF THE RIGHT LOWER EXTREMITY: Common Femoral Vein: Compressible, normal respiratory variation and augmented flow. Femoral Vein: Compressible, normal color flow and augmentation. Popliteal Vein: Compressible, normal augmentation. Deep Reflux: There is no evidence of reflux in the deep system in either the common femoral vein, superficial femoral or the popliteal vein. There is no evidence of a Yan's cyst. 2. SUPERFICIAL ULTRASOUND WITH DOPPLER OF RIGHT LOWER EXTREMITY: GREAT SAPHENOUS VEIN: Saphenofemoral Junction: 0.7 cm; Reflux: 0 ms Proximal Thigh: 0.6 cm; Reflux: 0 ms Mid Thigh: 0.3 cm; Reflux: 2248 ms Distal Thigh: 0.2 cm; Reflux: 0 ms At Knee: 0.3 cm; Reflux: 0 ms Proximal Calf: 0.2 cm; Reflux: 0 ms Mid Calf: 0.3 cm; Reflux: 0 ms Distal Calf: 0.3 cm; Reflux: 0 ms DUPLICATED MEDIAL GREAT SAPHENOUS VEIN: Diameter: None imaged Reflux: NA DUPLICATED LATERAL GREAT SAPHENOUS VEIN: Diameter: 0.2 cm. Reflux: NA SMALL SAPHENOUS VEIN: Saphenopopliteal Junction: 0.2 cm; Reflux: 0 ms Proximal: 0.3 cm; Reflux: 0 ms Distal: 0.3 cm; Reflux: 0 ms VEIN OF GIACOMINI: Size: NA Reflux: NA PERFORATORS: Location: Small saphenous vein mid segment and mid thigh Size: 0.3 cm. Reflux: NA VARICOSITIES: Location: Proximal and mid thigh. Size: 0.4 cm. Reflux: NA 3. DEEP VENOUS ULTRASOUND OF THE LEFT LOWER EXTREMITY: Common Femoral Vein: Compressible, normal respiratory variation and augmented flow. Femoral Vein: Compressible, normal color flow and augmentation. Popliteal Vein: Compressible, normal augmentation. Deep Reflux: There is no evidence of reflux in the deep system in either the common femoral vein, superficial femoral or the popliteal vein. There is no evidence of a Yan's cyst. 4. SUPERFICIAL ULTRASOUND WITH DOPPLER OF LEFT LOWER EXTREMITY: GREAT SAPHENOUS VEIN: Saphenofemoral Junction: 0.7 cm; Reflux: 0 ms Proximal Thigh: 0.4 cm; Reflux: 0 ms Mid Thigh: 0.3 cm; Reflux: 0 ms Distal Thigh: 0.3 cm; Reflux: 0 ms At Knee: 0.3 cm; Reflux: 0 ms Proximal Calf: 0.2 cm; Reflux: 0 ms Mid Calf: 0.3 cm; Reflux: 0 ms Distal Calf: 0.3 cm; Reflux: 0 ms DUPLICATED MEDIAL GREAT SAPHENOUS VEIN: Diameter: None imaged Reflux: NA DUPLICATED LATERAL GREAT SAPHENOUS VEIN: Diameter: 0.2-0.5 cm. Reflux: NA SMALL SAPHENOUS VEIN: Saphenopopliteal Junction: 0.5 cm; Reflux: 0 ms Proximal: 0.3 cm; Reflux: 0 ms Distal: 0.3 cm; Reflux: 0 ms VEIN OF GIACOMINI: Size: NA Reflux: NA PERFORATORS: Location: Small saphenous vein mid segment and lateral aspect proximal thigh. Size: 0.2 cm. Reflux: NA VARICOSITIES: Location: Proximal thigh at the knee and the lateral aspect of the knee. Size: 0.2-0.6 cm. Reflux: 2512 ms at the lateral knee level. US/US venous duplex LE BI IMPRESSION: Right: Venous insufficiency, great saphenous vein at the mid thigh. Varices and perforators without reflux. Left: Varices with reflux at the lateral knee level. Electronically signed by: Jaylen Talbot MD 03/08/2025 11:30 AM EDT
--- OUTSIDE RECORDS SUMMARY | 2025-03-08 11:18 | XMS_ITS | Patient Health Record ---
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 Name Role Phone Ashley (RETIRED) Travis [...] Problem Status W/U Status Risk Notes Problem 728889505 Colon cancer screening (Z12.11) Active confirmed Problem 51079848 Encounter for other preprocedural examination (Z01.818) Active confirmed Problem 720863189 FH: colon polyps (Z83.71) Active confirmed Problem 877981404 Gas bloat syndro me (K92.89) Active confirmed Plan Of Treatment Future Test Test Name Order Date COLONOSCOPY 05/27/2017 COLONOSCOPY 10/08/2022 Insurance Providers Payer Name Payer Address Payer Phone Subscriber Number Group Number Insured Name Patient Relationship to Insured Coverage Start Date Coverage End Date 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 [address] [place] [address] [id number] DAY SHERMAN Self - patient is the insured Medical (General) History Medical History History ICD Code hypertension Surgical History Surgery Date(Month/Year) Left eye surgery x3 stapedectomy-left ear benign breast biopsies Bilateral carpal tunnel repair
== END 2025-03-08 10:27 | disposition home or self-care (01) ==
LOC: HO.US 10:26
PROVIDERS: Visit Provider Surgery Vascular Surgery
DX: I83.12 Varicose veins of left lower extremity with inflammation (principal)
CPT/HCPCS: 93970

== ENCOUNTER → 2025-03-08 10:27 | Outpatient (BNV) | payer OTHER, SELFPAY | PROVIDERS: Visit Provider Radiology Diagnostic Radiology | DX: I83.813 Varicose veins of bilateral lower extremities with pain (principal) | CPT/HCPCS: 93970 ==

== ENCOUNTER → 2025-03-14 12:44 | Outpatient (BNV) | payer OTHER, SELFPAY | PROVIDERS: Visit Provider Radiology Diagnostic Radiology | DX: G57.62 Lesion of plantar nerve, left lower limb (principal) | CPT/HCPCS: 73720 ==

== ENCOUNTER 2025-03-14 12:46 | Outpatient (REF) | payer OTHER, SELFPAY ==
--- NOTE | ~2025-03-14 | MR_ITS ---
CLINICAL HISTORY: G57.62 - Lesion of plantar nerve, left lower limb --- Additional Notes or Special Instructions: MR forefoot MR left foot with and without contrast Comparison: CR/SR - XR FOOT 1-2 VIEWS LEFT - 01/18/25 16:45 EDT Findings: There is bone marrow edema and enhancement predominantly centered upon the lateral cuneiform and base of the 3rd metatarsal, however also seen within the adjacent intermediate cuneiform, base of the 2nd metatarsal, cuboid and base of the 4th metatarsal (series 7 images 10 through 17 and series 10 images 14 through 22). There is associated cystic change which predominantly involves the base of the 3rd metatarsal. Cystic change is also seen in the plantar aspect of the midfoot adjacent to 3rd metatarsal measuring up to 0.6 x 2.0 x 0.8 cm with enhancement (series 7 images 12 through 14 and series 8 and 10 images 17 through 25). There is remodeling/cortical destruction of the plantar aspect of the base of the 3rd metatarsal. Cystic change is also seen between 2nd and 3rd metatarsals with enhancement (series 8 and 10, image 18 and series 7 image 14). The cystic lesion appears to be in continuity with the plantar nerve (best seen on series 10 images 20 through 28). Articulations are normal. Lisfranc complex is intact. Flexor and extensor tendons are intact. There is muscular no atrophy, edema or abnormal enhancement. Unremarkable plantar fascia. Impression: Cystic enhancing plantar lesion measuring up to 2.0 cm in the midfoot with associated bone marrow edema, detailed above, consistent with the given history of a plantar nerve lesion. However, there is no muscular atrophy, edema or abnormal enhancement, which would be typically expected with nerve pathology. There is associated bone marrow edema, enhancement and remodeling/cortical destruction of the plantar aspect of the base of the 3rd metatarsal which is concerning for an aggressive lesion. Follow up is recommended. This document has been electronically signed by: Melissa Anthony MD on 03/15/2025 15:48:35
--- OUTSIDE RECORDS SUMMARY | 2025-03-14 13:37 | XMS_ITS | Patient Health Record ---
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 Name Role Phone Ashley (RETIRED) Travis LUNA [...] Problem Status W/U Status Risk Notes Problem 814199083 Colon cancer screening (Z12.11) Active confirmed Problem 34896228 Encounter for other preprocedural examination (Z01.818) Active confirmed Problem 877608109 FH: colon polyps (Z83.71) Active confirmed Problem 724677302 Gas bloat syndro me (K92.89) Active confirmed Plan Of Treatment Future Test Test Name Order Date COLONOSCOPY 05/27/2017 COLONOSCOPY 10/08/2022 Insurance Providers Payer Name Payer Address Payer Phone Subscriber Number Group Number Insured Name Patient Relationship to Insured Coverage Start Date Coverage End Date 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 [address] [place] [address] [id number] DAY SHREMAN Self - patient is the insured Medical (General) History Medical History History ICD Code hypertension Surgical History Surgery Date(Month/Year) Left eye surgery x3 stapedectomy-left ear benign breast biopsies Bilateral carpal tunnel repair
== END 2025-03-14 12:47 | disposition home or self-care (01) ==
LOC: HO.MRI 12:46
PROVIDERS: Visit Provider Internal Medicine
DX: G57.62 Lesion of plantar nerve, left lower limb (principal); M79.672 Pain in left foot
CPT/HCPCS: 73720; A9585

== ENCOUNTER 2025-04-10 07:35 | Outpatient (REF) | payer OTHER, SELFPAY ==
--- OUTSIDE RECORDS SUMMARY | 2025-04-10 07:39 | XMS_ITS | Patient Health Record ---
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 Name Role Phone Ashley (RETIRED) Travis LUNA Primary Care Provide r Nicola Lind Jr Unavailable [phone] Allergies No Known Allergies Reason For [...] Problem Status W/U Status Risk Notes Problem 783663711 Colon cancer screening (Z12.11) Active confirmed Problem 90548817 Encounter for other preprocedural examination (Z01.818) Active confirmed Problem 622002601 FH: colon polyps (Z83.71) Active confirmed Problem 026196456 Gas bloat syndro me (K92.89) Active confirmed Plan Of Treatment Future Test Test Name Order Date COLONOSCOPY 05/27/2017 COLONOSCOPY 10/08/2022 Insurance Providers Payer Name Payer Address Payer Phone Subscriber Number Group Number Insured Name Patient Relationship to Insured Coverage Start Date Coverage End Date 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 [address] [place] [address] [id number] DAY SHERMAN Self - patient is the insured Medical (General) History Medical History History ICD Code hypertension Surgical History Surgery Date(Month/Year) Left eye surgery x3 stapedectomy-left ear benign breast biopsies Bilateral carpal tunnel repair
[2025-04-10 09:44] LABS: Appearance Urine Hazy; PH 5.0 (5.0-9.0); Specific Gravity - Urine >= 1.030 (1.005-1.025); UMIC TRIGGER UACC YES
[2025-04-10 10:07] LABS: UACC Culture Trigger YES
== END 2025-04-10 07:36 | disposition home or self-care (01) ==
LOC: HO.LAB 07:35
PROVIDERS: PCP Internal Medicine; Visit Provider Hospitalist
DX: R30.0 Dysuria (principal)
CPT/HCPCS: 81001; 81003; 87086; 87088; 87186

== ENCOUNTER 2025-05-15 10:53 | Outpatient (AMB) | payer OTHER, SELFPAY ==
--- NOTE | 2025-05-15 10:55 | A.OFFVIS_ITS ---
Intake Visit Reasons: Follow up US Intake Note: Patient presents for follow up on performed on 03/08/25. Patient states her legs feel heavy and sore at times. Accompanied by: Self / Same As Patient Allergies No Known Allergies (No Known Allergies*) Allergy (Verified 05/15/25 10:57) HPI HPI Follow up US: Details: The patient is a 65-year-old female presenting with venous insufficiency. She reports her legs feeling tired and heavy, with some swelling noted, particularly when transitioning from sitting to standing or after prolonged periods of alissa ctivity. A venous insufficiency ultrasound was performed. She now presents for follow-up. The patient also has a history of a cystic plantar lesion of left foot, which was identified on an MRI of the foot. She experiences cramps in the affected foot, which have been attributed to various potential causes. She is quite concerned about this as well. 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 She does use compression which does provide some relief. She remains quite active and does 3 - 12 hour shifts on a regular basis. She now presents for vascular follow-up. [facility] Medical History High blood pressure Surgical History History of breast biopsy History of carpal tunnel surgery of right wrist (~03/20/22) History of carpal tunnel surgery of left wrist (~04/16/22) History of History of stapedectomy Hx of eye surgery Family History Mother No problems noted. Father No problems noted. 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 Cognitive needs: No Hearing needs: No Vision needs: Yes (rx glasses) Review of Systems Const All systems reviewed & are unremarkable except as noted in HPI and below Reports no additional complaints ENT Reports Normal hearing present Card Denies chest pain, Denies chest pain at rest, Denies chest pain with activity and Denies pedal edema Resp Denies cough GI Denies abdominal pain Musc Denies abnormal gait, Denies muscle cramps and Denies radiating pain into limb Skin/Breast Denies skin ulcer and Denies wounds Neuro Reports Normal hearing present and Denies abnormal gait Psych Reports no additional complaints Physical Exam Const General: cooperative, healthy appearing and comfortable Orientation/consciousness: oriented to person, oriented to place and oriented to time HEENT Head: Yes normal to inspection Neck Neck: Yes normal visual inspection Carotids: no bruits Chest Chest palpation & inspection: normal inspection of the chest Resp Effort & Inspection: normal respiratory effort and able to speak in complete sentences Auscultation: clear to auscultation bilaterally, no crackles, no rales, no rhonchi and no wheezes Cardio Other: Palpable dorsalis pedis pulses bilaterally Rate: regular rate Rhythm: regular rhythm Heart sounds: S1 normal heart sound present and S2 normal heart sound present Bruits: no carotid bruits Peripheral pulses: Peripheral pulses 2+ throughout GI Inspection: Yes normal to inspection Skin Wounds: no wounds Hair: normal Neuro General: oriented to person, oriented to place and oriented to time Cranial nerves: Yes CN's II-XII intact bilaterally and Yes Normal hearing present Cognition (Neuro): normal cognition Motor exam (neuro): 5/5 motor strength present throughout Extrem Other: venous exam: +1 edema General: No clubbing, No cyanosis and Yes edema Psych Appearance: grossly normal Mental Status: mental status grossly normal Speech and movement: Normal speech and movement present Results Reviewed Results Reviewed: Brief summary of venous insufficiency testing is as follows: right great saphenous vein: Focally positive right thigh right small saphenous vein: negative right accessory vein: none present left great saphenous vein: negative left small saphenous vein: negative left accessory vein: none present Please note there is no evidence of any venous aneurysms or significant tortuosity Assessment & Plan Assessment & Plan (1) Varicose veins of both legs with edema: Code(s): I83.893 - Varicose veins of bilateral lower extremities with other complications Category: Medical Plan: In short venous insufficiency testing is essentially negative. She does have a focal spot that is positive in the right thigh but would not treat that. We did discuss continued conservative measures including compression elevation and exercise. She will follow up with us on an as-needed basis. Thank you for allowing us to assist in her care. If there are any questions or concerns please do not hesitate to contact us. (2) Left foot pain: Code(s): M79.672 - Pain in left foot Category: Medical Plan: She does occasionally demonstrates some left foot pain and was concerned about this cystic lesion that was noted on MRI. I have taken the liberty of ordering a podiatry referral. She will follow up with us on an as-needed basis. Thank you for allowing us to assist in her Orders: Referrals Podiatry Referral M79.672 - Pain in left foot Coding Level of Care Code Est Pt Level 4 (68602) Complex EM visit Add On G2211 Diagnoses Varicose veins of both legs with edema I83.893 Left foot pain M79.672
--- OUTSIDE RECORDS SUMMARY | 2025-05-15 13:21 | XMS_ITS | Patient Health Record ---
Author Organization [facility] Address [address] [place] [address] Care Team Providers Care Top Collar Maker Name Role Phone Ashley (RETIRED) Travis LUNA [...] at 5:00 p.m. the day before the procedure; Duration: 1 day 10/08/2022 Active Immunizations Vaccine Route [...] Problem Status W/U Status Risk Notes Problem Colon cancer screening (217550799) Colon cancer screening (Z12.11) Active confirmed Problem Pre-procedure evaluation check (626197855) Encounter for other preprocedural examination (Z01.818) Active confirmed Problem Family history of polyp of colon (575625113) FH: colon polyps (Z83.71) Active confirmed Problem Abdominal bloating (finding) (579609485) Gas bloat syndrome (K92.89) Active confirmed Plan Of Treatment Future Test Test Name Order Date COLONOSCOPY 05/27/2017 COLONOSCOPY 10/08/2022 Insurance Providers Payer Name Payer Address Payer Phone Subscriber Number Group Number Insured Name Patient Relationship to Insured Coverage Start Date Coverage End Date [employer] [place] [address] [address] [place] [address] [id number] DAY SHERMAN Self - patient is the insured Medical (General) History Medical History History ICD Code hypertension Surgical History Surgery Date(Month/Year) Left eye surgery x3 stapedectomy-left ear benign breast biopsies Bilateral carpal tunnel repair
== END 2025-05-15 11:20 | disposition home or self-care (01) ==
LOC: HO.HVS 10:54
PROVIDERS: PCP Internal Medicine; Visit Provider Surgery Vascular Surgery
DX: I83.893 Varicose veins of bilateral lower extremities with other complications (principal); M79.672 Pain in left foot
CPT/HCPCS: 99214

== ENCOUNTER 2025-06-28 08:50 | Outpatient (REF) | payer OTHER, SELFPAY | END 2025-06-28 08:51 | disposition home or self-care (01) | LOC: HO.SH 08:50 | PROVIDERS: Visit Provider Internal Medicine | DX: H90.3 Sensorineural hearing loss, bilateral (principal) | CPT/HCPCS: 92552; 92556 ==

== ENCOUNTER 2025-07-04 11:04 | Outpatient (AMB) | payer OTHER, SELFPAY ==
[2025-07-04 11:10] VITALS: BMI 32.1
--- NOTE | 2025-07-04 11:10 | MHC.OFFVIS ---
Vital Signs 07/04/25 11:10 Height 5 ft 3 in Weight 181 lb BMI 32.1 Intake Visit Reasons: Pain in left foot Intake Note: Shantell is a 65 year old female who presents to the office today as a new patient visit for pain in her left foot referred by her Vascular Surgeon Dr. Ngo. MRI on 03/15/2025 showed a 2 cm left plantar cystic lesion. Pt states the pain has been going on for about 6 months and the pain runs through her whole foot. She has tried compression stocking, icing the foot, shoe inserts and she had found no relief for her symptoms. Imaging is all set in patients chart Allergies No Known Allergies (No Known Allergies*) Allergy (Verified 07/04/25 13:00) HPI Comments Details: The patient is a 65 year old female with a past medical history as seen below presenting with left foot pain and cramping that has been ongoing for the last 6-9 months. She describes the pain as wrapping around the foot and ankle, which is accompanied by severe, debilitating cramps, particularly when she is relaxing in bed. The patient reports an inability to point her foot without pain and says her toes sometimes feel locked. She also feels a sensation like a clump or chunk of wet sand in her foot when she rolls her toes. Her symptoms are aggravated by walking barefoot or on hard surfaces like cement. Alleviating factors include wearing sneakers with memory foam, using compression stockings, and taking extra-strength Tylenol. She also reports that applying ice helps when she is having a cramp. Previous workup includes a vascular evaluation, which included an ultrasound that did not qualify her for any intervention. An x-ray showed a lesion and separation between the second and third toes, and an MRI from February confirmed a neuroma in that location. She was seen at [facility] and was advised to use shoe inserts, but did not use metatarsal pads. 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 She acknowledges having pes planus (flat feet), which has become more pronounced over time. 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 She states her recent magnesium level was within normal limits. She denies any other pedal concerns. [facility] Medical History (Updated 07/10/25 @ 09:51 by Carolyn Villa DPM) Pes planus of both feet Metatarsalgia of left foot High blood pressure Surgical History History of breast biopsy History of carpal tunnel surgery of right wrist (~03/20/22) History of carpal tunnel surgery of left wrist (~04/16/22) History of History of stapedectomy Hx of eye surgery Family History Mother No problems noted. Father No problems noted. 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 Reports chronic ankle swelling and a sensation of a clump in her foot. Reports pes planus. - Neurological: Reports a sensation of her toes getting locked. All systems reviewed & are unremarkable except as noted in HPI and below Physical Exam Vital Signs: BMI result Body Mass Index 32.1 Extrem Other: Left lower extremity focused physical exam: Derm: No open lesions abrasions or wounds noted. Skin supple and turgor within normal limits. No hyperkeratotic or macerated areas noted. No ecchymosis, erythema, or discoloration noted. No clinical signs of infection noted. Vascular: DP/PT pulses palpable. Capillary refill time less than 3 seconds. Temperature gradient warm to warm. Pedal hair absent. Mild edema noted to the ankle. Minimal varicosities noted. Neuro: Protective sensation is grossly intact. MSK: Splaying of the 2nd and 3rd toes noted. Hammertoe deformities noted. No crepitus or fluctuance noted. Mildly antalgic gait unassisted noted. No other gross abnormalities noted. Office Procedures AMB Podiatry Dressing Details of Procedure: Provided patient with metatarsal felt pads for offloading the forefoot. 16931 Strapping of toe/s Procedure code (CPT) selection complete Results Reviewed Results Reviewed: Podiatry read of left foot MRI (03/15/2025): Cummings's neuroma noted. Cystic changes noted diffusely throughout the midfoot and forefoot. Left foot MRI (03/15/2025): Findings: There is bone marrow edema and enhancement predominantly centered upon the lateral cuneiform and base of the 3rd metatarsal, however also seen within the adjacent intermediate cuneiform, base of the 2nd metatarsal, cuboid and base of the 4th metatarsal (series 7 images 10 through 17 and series 10 images 14 through 22). There is associated cystic change which predominantly involves the base of the 3rd metatarsal. Cystic change is also seen in the plantar aspect of the midfoot adjacent to 3rd metatarsal measuring up to 0.6 x 2.0 x 0.8 cm with enhancement (series 7 images 12 through 14 and series 8 and 10 images 17 through 25). There is remodeling/cortical destruction of the plantar aspect of the base of the 3rd metatarsal. Cystic change is also seen between 2nd and 3rd metatarsals with enhancement (series 8 and 10, image 18 and series 7 image 14). The cystic lesion appears to be in continuity with the plantar nerve (best seen on series 10 images 20 through 28). Articulations are normal. Lisfranc complex is intact. Flexor and extensor tendons are intact. There is muscular no atrophy, edema or abnormal enhancement. Unremarkable plantar fascia. Impression: Cystic enhancing plantar lesion measuring up to 2.0 cm in the midfoot with associated bone marrow edema, detailed above, consistent with the given history of a plantar nerve lesion. However, there is no muscular atrophy, edema or abnormal enhancement, which would be typically expected with nerve pathology. There is associated bone marrow edema, enhancement and remodeling/cortical destruction of the plantar aspect of the base of the 3rd metatarsal which is concerning for an aggressive lesion. Follow up is recommended. Bilateral lower extremity venous duplex (03/08/2025): Right: Venous insufficiency, great saphenous vein at the mid thigh. Varices and perforators without reflux. Left: Varices with reflux at the lateral knee level. Podiatry read of left foot x-ray (01/18/2025): Splaying of the 2nd and 3rd toes noted. Plantar calcaneal bone spur noted. Small posterior calcaneal bone spur noted. Osteophytic changes noted at the TNJ. Joint space narrowing noted to the 1st MPJ. Left foot x-ray (12/29/2024): FINDINGS: Degenerative changes with osteophytes and sclerosis is noted involving the lateral sesamoid of the great toe. There is splaying of the second and third digits. Moderate size plantar calcaneal enthesophyte is present. IMPRESSION: There is splaying of the second and third toes. This is weakly associated with Cummings's neuroma. If there clinical signs symptoms of Cummings's neuroma, consider forefoot MRI without and with IV contrast. Degenerative changes involving the lateral sesamoid and first metatarsal. Calcaneal spur, nonspecific finding. Assessment & Plan Assessment & Plan (1) Foot cramps: Code(s): R25.2 - Cramp and spasm Category: Medical (2) Left foot pain: Code(s): M79.672 - Pain in left foot Category: Medical (3) Cummings neuroma of left foot: Code(s): G57.62 - Lesion of plantar nerve, left lower limb Category: Medical (4) Metatarsalgia of left foot: Code(s): M77.42 - Metatarsalgia, left foot Category: Medical (5) Pes planus of both feet: Code(s): M21.41 - Flat foot [pes planus] (acquired), right foot; M21.42 - Flat foot [pes planus] (acquired), left foot Category: Medical (6) Varicose veins of both legs with edema: Code(s): I83.893 - Varicose veins of bilateral lower extremities with other complications Category: Medical Plan Patient was informed and verbally consented to the use of an ambient scribe for clinic note documentation during this visit. I discussed with the patient that her symptoms, along with her prior MRI and X-ray findings, are consistent with a diagnosis of Cummings's neuroma. I explained that a neuroma is an inflamed and swollen nerve that forms into a ball, which can cause pain, cramping, and splaying of the toes as it grows. We reviewed that factors such as having flat feet and walking barefoot can exacerbate the condition. We discussed a stepwise treatment plan, starting with conservative measures. I recommended starting with metatarsal pads and provided detailed instructions on their placement to offload the affected area. The patient expressed a preference to try these pads first and avoid steroids if possible. We discussed that if this initial treatment is not effective, we could proceed with a course of oral steroids (Medrol Dosepak), followed by a cortisone injection or, as a last resort, surgery to remove the neuroma. The patient noted a previous negative experience with a cortisone injection for her shoulder and is more amenable to the oral steroid pack if needed. I also suggested an ankle brace could help with her chronic ankle instability and swelling. I recommended she schedule a follow-up appointment in six weeks to evaluate her progress with the metatarsal pads. - The patient was advised to start conservative treatment for the neuroma. - She will begin using metatarsal pads, with counseling provided on correct placement behind the ball of the foot to offload pressure from the neuroma. - The patient will continue wearing supportive sneakers with memory foam cushioning and was advised to avoid going barefoot. - She can continue using Tylenol Extra Strength as needed for pain management. - An ankle brace was suggested as an option to provide stability and help with chronic ankle swelling. - If symptoms do not improve with metatarsal pads after a trial period, the next step would be a course of oral steroids (Medrol Dosepak). - Cortisone injections and surgical excision were discussed as further options if conservative measures fail. RTC in 6 weeks. Orders: Orders AMB Podiatry Dressing 07/04/25 G57.62 - Lesion of plantar nerve, left lower limb, M77.42 - Metatarsalgia, left foot, M79.672 - Pain in left foot, R25.2 - Cramp and spasm Coding Level of Care Code New Pt Level 4 (03788) Diagnoses Foot cramps R25.2 Left foot pain M79.672 Cummings neuroma of left foot G57.62 Metatarsalgia of left foot M77.42 Pes planus of both feet M21.41; M21.42 Varicose veins of both legs with edema I83.893 CPT Codes Podiatry Dressing - CPT: 24852 Strapping of toe/s ([id number]) Time Spent (min) 50
== END 2025-07-04 11:37 | disposition home or self-care (01) ==
LOC: HO.HPODS 11:05
PROVIDERS: PCP Internal Medicine; Visit Provider Student in an Organized Health Care Education/Training Program
DX: R25.2 Cramp and spasm (principal); M79.672 Pain in left foot; G57.62 Lesion of plantar nerve, left lower limb; M77.42 Metatarsalgia, left foot; M21.41 Flat foot [pes planus] (acquired), right foot; M21.42 Flat foot [pes planus] (acquired), left foot; I83.893 Varicose veins of bilateral lower extremities with other complications
CPT/HCPCS: 29550; 99204

== ENCOUNTER → 2025-07-04 11:04 | Outpatient (BNVA) | payer OTHER, SELFPAY | PROVIDERS: PCP Internal Medicine; Visit Provider Student in an Organized Health Care Education/Training Program | DX: R25.2 Cramp and spasm (principal); G57.62 Lesion of plantar nerve, left lower limb; M21.41 Flat foot [pes planus] (acquired), right foot; M21.42 Flat foot [pes planus] (acquired), left foot; I83.893 Varicose veins of bilateral lower extremities with other complications | CPT/HCPCS: 29550 ==